=== PATIENT | female | born 1985 | race Caucasian/White ===

== ENCOUNTER 2017-08-18 08:41 | Emergency (ER) | payer BC, OTHER ==
--- NOTE | 2017-08-18 09:26 | ED ---
General Adult HPI - General Chief complaint: Recheck/Abnormal Lab/Rx Stated complaint: BACK PAIN, LUMP ON HIP Time Seen by Provider: 08/18/17 09:02 Source: patient, RN notes reviewed Mode of arrival: ambulatory Limitations: no limitations - History of Present Illness Initial comments: Patient is a 32-year-old female who presents emergency room today with chief complaint of a lump to the right hip and vaginal bleeding. Patient states that she's been bleeding for the last 9 months. She states she does have insurance. States tried follow-up with [facility]. She does admit to a history of fibroids. She denies any dizziness or lightheadedness. She denies any vaginal pain or abdominal pain. She admits that she noticed a lump to the right hip area a few months ago. She states she pressed up against something felt it. She states it 's a small bump. She also admits to some tightness sensation to the left axilla which is also been going on for the last several months. She denies any other complaints or symptoms. Patient denies any recent fever, chills, shortness of breath, chest pain, back pain, abdominal pain, nausea or vomiting, dysuria or hematuria, constipation or diarrhea, headaches or visual changes, or any other complaints. - Related Data Home Medications Medication Instructions Recorded Confirmed Medroxyprogesterone Acetate 5 mg PO TID 03/06/16 04/25/16 [Provera] Previous Rx's Medication Instructions Recorded Famotidine [Pepcid] 20 mg PO DAILY #30 tablet 04/25/16 Famotidine [Pepcid] 20 mg PO DAILY #30 tablet 04/25/16 Sulfamethox-Tmp 800-160Mg [Bactrim 1 each PO Q12HR #20 tab 04/25/16 DS 800-160 mg] Allergies Allergy/AdvReac Type Severity Reaction Status Date / Time No Known Allergies Allergy Verified 08/18/17 08:47 Review of Systems ROS Statement: Those systems with pertinent positive or pertinent negative responses have been documented in the HPI. ROS Other: All systems not noted in ROS Statement are negative. Past Medical History Additional Past Medical History / Comment(s): fibroid History of Any Multi-Drug Resistant Organisms: None Reported Past Surgical History: Cholecystectomy Additional Past Surgical History / Comment(s): cone biospy Past Anesthesia/Blood Transfusion Reactions: No Reported Reaction Past Psychological History: Anxiety, Bipolar, Depression Smoking Status: Former smoker Past Alcohol Use History: Rare Past Drug Use History: None Reported - Past Family History Mother Family Medical History: Cancer, Diabetes Mellitus, Hyperlipidemia, Hypertension Additional Family Medical History / Comment(s): mom has cervical cancer General Exam - General Exam Comments Initial Comments: General: The patient is awake and alert, in no distress, and does not appear acutely ill. Eye: Pupils are equal, round and reactive to light, extra-ocular movements are intact. No nystagmus. There is normal conjunctiva bilaterally. No signs of icterus. Ears, nose, mouth and throat: There are moist mucous membranes and no oral lesions. Neck: The neck is supple, there is no tenderness or JVD. Cardiovascular: There is a regular rate and rhythm. No murmur, rub or gallop is appreciated. Respiratory: Lungs are clear to auscultation, respirations are non-labored, breath sounds are equal. No wheezes, stridor, rales, or rhonchi. Gastrointestinal: Soft, non-distended, non-tender abdomen without masses or organomegaly noted. There is no rebound or guarding present. No CVA tenderness. Bowel sounds are unremarkable. Musculoskeletal: Normal ROM, no tenderness. Strength 5/5. Sensation intact. Pulses equal bilaterally 2+. Neurological: A&O x 3. CN II-XII intact, There are no obvious motor or sensory deficits. Coordination appears grossly intact. Speech is normal. Skin: Patient does have small palpable cystlike structure to the right hip. Possibly ganglion cyst. No abnormality in the left axilla. Mild tenderness on palpation to the area. Skin is warm and dry and no rashes or lesions are noted. Psychiatric: Cooperative, appropriate mood & affect, normal judgment. Limitations: no limitations Course Vital Signs 08/18/17 08:43 Temperature 99.3 F Pulse Rate 85 Respiratory 16 Rate Blood Pressure 134/77 O2 Sat by Pulse 100 Oximetry Medical Decision Making - Medical Decision Making 32-year-old female presenting to the ER with multiple complaints. Admits to vaginal bleeding 9 months. States that she just got insurance. She does admit to history of fibroids. She denies any dizziness or lightheadedness. Was discussed about following up with [facility]. Patient does have small cyst in the right hip area no skin changes been there for several months. Advised to continue follow-up family doctor or [facility] for this. Patient mitts or tightness to the left axilla there is no abnormality on exam again patient is advised to follow-up with her [facility] or family doctor for further evaluation. Patient advised return to emergency room if any symptoms increase worsen. She states her stated and is in agreement. Disposition Clinical Impression: Vaginal bleeding, History of uterine fibroid Disposition: HOME SELF-CARE Condition: Stable Instructions: Uterine Fibroids (ED) Additional Instructions: Please follow-up with [facility]/family doctor in the next 2 days. Please return to emergency room if the symptoms increase or worsen or for any other concerns. Referrals: John Contreras MD [Primary Care Provider] - 1-2 days Karen Hanson MD [STAFF PHYSICIAN] - 1-2 days Time of Disposition: 09:29
[2017-08-18 10:21] VITALS: BP 126/70; PULSE 60; RESP 18; TEMP 98
== END 2017-08-18 10:22 | disposition home or self-care (01) ==
LOC: EC 08:41
DX: N93.9 Abnormal uterine and vaginal bleeding, unspecified (principal); R22.41 Localized swelling, mass and lump, right lower limb; M54.9 Dorsalgia, unspecified; Z87.42 Personal history of other diseases of the female genital tract; Z87.891 Personal history of nicotine dependence; Z88.8 Allergy status to other drugs, medicaments and biological substances
CPT/HCPCS: 99283

== ENCOUNTER 2017-10-01 20:26 | Emergency (ER) | payer BC ==
[2017-10-01 20:38] VITALS: RESP 18
--- NOTE | 2017-10-01 21:32 | ED ---
General Adult HPI - General Chief complaint: Vaginal Bleeding Stated complaint: FEMALE Time Seen by Provider: 10/01/17 21:07 Source: patient, family Mode of arrival: ambulatory Limitations: no limitations - History of Present Illness Initial comments: This patient is a 32-year-old woman with history of previous menometrorrhagia requiring D&C, who presents today with complaint of continued vaginal bleeding. She states that she is been having some bleeding going on for approximately the past 10 months or so. She states that she has been seeing Dr. Mckeon, and is scheduled to have a D&C performed on October 07. She states that the bleeding seems to have increased over the course of today and that when she woke up to get ready to go to work this afternoon she noted she had bled through her pad onto the bed sheets. Also this evening she notes that when she stands she gets a little bit lightheaded. -: days(s) Consistency: constant Improves with: none Worsens with: none Treatments Prior to Arrival: none - Related Data Home Medications Medication Instructions Recorded Confirmed Losartan-Hctz 50-12.5 mg [Hyzaar 1 tab PO DAILY 08/18/17 10/01/17 50-12.5] Previous Rx's Medication Instructions Recorded Ferrous Sulfate [Iron] 325 mg PO BID #20 tablet 10/01/17 Allergies Allergy/AdvReac Type Severity Reaction Status Date / Time No Known Allergies Allergy Verified 10/01/17 21:05 Review of Systems ROS Statement: Those systems with pertinent positive or pertinent negative responses have been documented in the HPI. ROS Other: All systems not noted in ROS Statement are negative. Constitutional: Denies: fever, chills, weakness Eyes: Denies: vision change Respiratory: Denies: cough, dyspnea Cardiovascular: Denies: chest pain, palpitations, orthopnea, edema, syncope Gastrointestinal: Denies: abdominal pain, nausea, vomiting Genitourinary: Reports: as per HPI, abnormal menses. Denies: dysuria, hematuria Musculoskeletal: Denies: back pain Skin: Denies: rash Neurological: Denies: headache, weakness, numbness Hematological/Lymphatic: Denies: easy bleeding Past Medical History Additional Past Medical History / Comment(s): fibroid History of Any Multi-Drug Resistant Organisms: None Reported Past Surgical History: Cholecystectomy Additional Past Surgical History / Comment(s): cone biospy Past Anesthesia/Blood Transfusion Reactions: No Reported Reaction Past Psychological History: Anxiety, Bipolar, Depression Smoking Status: Former smoker Past Alcohol Use History: Rare Past Drug Use History: None Reported - Past Family History Mother Family Medical History: Cancer, Diabetes Mellitus, Hyperlipidemia, Hypertension Additional Family Medical History / Comment(s): mom has cervical cancer General Exam Limitations: no limitations General appearance: alert, in no apparent distress, obese Head exam: Present: atraumatic, normocephalic Eye exam: Present: normal appearance. Absent: scleral icterus, conjunctival injection ENT exam: Present: normal oropharynx, mucous membranes moist Respiratory exam: Present: normal lung sounds bilaterally. Absent: respiratory distress, wheezes, rales, rhonchi, stridor Cardiovascular Exam: Present: regular rate, normal rhythm, normal heart sounds. Absent: systolic murmur, diastolic murmur, rubs, gallop GI/Abdominal exam: Present: soft, normal bowel sounds. Absent: distended, tenderness, guarding, rebound, rigid External exam: Present: normal external exam, other (RN Storm present) Speculum exam: Present: normal speculum exam, other (There is a trace of dark red blood at the cervical os). Absent: erythema, vaginal discharge, cervical discharge, vaginal bleeding By manual exam: Absent: cervical motion tenderness, adnexal tenderness Extremities exam: Present: normal inspection, normal capillary refill. Absent: pedal edema, calf tenderness Back exam: Present: normal inspection. Absent: CVA tenderness (R), CVA tenderness (L) Neurological exam: Present: alert, normal gait Skin exam: Present: warm, dry, intact, normal color. Absent: rash Course Vital Signs 10/01/17 20:35 Temperature 98.3 F Pulse Rate 82 Respiratory 18 Rate Blood Pressure 131/69 O2 Sat by Pulse 99 Oximetry Medical Decision Making - Lab Data Result diagrams: 10/01/17 21:35 10/01/17 21:35 Lab Results 10/01/17 10/01/17 10/01/17 Range/Units 21:35 21:35 21:35 WBC 7.1 (3.8-10.6) k/uL RBC 4.44 (3.80-5.40) m/uL Hgb 10.8 L (11.4-16.0) gm/dL Hct 34.3 (34.0-46.0) % MCV 77.2 L (80.0-100.0) fL MCH 24.3 L (25.0-35.0) pg MCHC 31.5 (31.0-37.0) g/dL RDW 13.5 (11.5-15.5) % Plt Count 198 (150-450) k/uL Neutrophils % 67 % Lymphocytes % 23 % Monocytes % 6 % Eosinophils % 3 % Basophils % 0 % Neutrophils # 4.7 (1.3-7.7) k/uL Lymphocytes # 1.6 (1.0-4.8) k/uL Monocytes # 0.4 (0-1.0) k/uL Eosinophils # 0.2 (0-0.7) k/uL Basophils # 0.0 (0-0.2) k/uL Hypochromasia Slight Sodium 143 (137-145) mmol/L Potassium 4.0 (3.5-5.1) mmol/L Chloride 108 H (98-107) mmol/L Carbon Dioxide 27 (22-30) mmol/L Anion Gap 8 mmol/L BUN 14 (7-17) mg/dL Creatinine 0.70 (0.52-1.04) mg/dL Est GFR (MDRD) Af Amer >60 (>60 ml/min/1.73 sqM) Est GFR (MDRD) Non-Af >60 (>60 ml/min/1.73 sqM) Glucose 95 (74-99) mg/dL Calcium 8.5 (8.4-10.2) mg/dL Urine HCG, Qual Not Detected (Not Detectd) Disposition Clinical Impression: Dysfunctional uterine bleeding, Anemia Disposition: HOME SELF-CARE Condition: Good Instructions: Dysfunctional Uterine Bleeding (ED) Prescriptions: Ferrous Sulfate [Iron] 325 mg PO BID #20 tablet Referrals: John Contreras MD [Primary Care Provider] - 1-2 days
[2017-10-01 21:53] LABS: Basophils % (A) 0 %; Eosinophils # (A) 0.2 k/uL (0-0.7); Eosinophils % (A) 3 %; HCT 34.3 % (34.0-46.0); HGB 10.8 gm/dL (11.4-16.0); Hypochromasia Slight; Lymphocytes # (A) 1.6 k/uL (1.0-4.8); Lymphocytes % (A) 23 %; MCH 24.3 pg (25.0-35.0); MCHC 31.5 g/dL (31.0-37.0); MCV 77.2 fL (80.0-100.0); Mean Platelet Volume 8.9; Monocytes # (A) 0.4 k/uL (0-1.0); Monocytes % (A) 6 %; Neutrophils # (A) 4.7 k/uL (1.3-7.7); Neutrophils % (A) 67 %; Platelet Count 198 k/uL (150-450); RBC 4.44 m/uL (3.80-5.40); RDW 13.5 % (11.5-15.5); WBC 7.1 k/uL (3.8-10.6)
[2017-10-01 22:06] LABS: Anion Gap 8 mmol/L; Blood Urea Nitrogen 14 mg/dL (7-17); Calcium 8.5 mg/dL (8.4-10.2); Carbon Dioxide 27 mmol/L (22-30); Chloride 108 mmol/L (98-107); Glucose 95 mg/dL (74-99); Sodium 143 mmol/L (137-145)
[2017-10-01 23:02] VITALS: BP 123/73; PULSE 83; TEMP 99
== END 2017-10-01 22:45 | disposition home or self-care (01) ==
LOC: EC 20:26
DX: N93.8 Other specified abnormal uterine and vaginal bleeding (principal); D64.9 Anemia, unspecified; Z87.891 Personal history of nicotine dependence; Z79.899 Other long term (current) drug therapy
CPT/HCPCS: 36415; 80048; 81025; 85025; 99284

== ENCOUNTER → 2017-10-03 | Outpatient (CLI) | payer BC ==
[2017-10-03 13:15] LABS: Basophils % (A) 0 %; Eosinophils # (A) 0.3 k/uL (0-0.7); Eosinophils % (A) 3 %; HCT 32.5 % (34.0-46.0); HGB 10.1 gm/dL (11.4-16.0); Hypochromasia Slight; Lymphocytes # (A) 2.2 k/uL (1.0-4.8); Lymphocytes % (A) 25 %; MCH 23.8 pg (25.0-35.0); MCHC 31.2 g/dL (31.0-37.0); MCV 76.4 fL (80.0-100.0); Mean Platelet Volume 9.7; Monocytes # (A) 0.4 k/uL (0-1.0); Monocytes % (A) 4 %; Neutrophils # (A) 5.8 k/uL (1.3-7.7); Neutrophils % (A) 66 %; Platelet Count 196 k/uL (150-450); RBC 4.25 m/uL (3.80-5.40); WBC 8.8 k/uL (3.8-10.6)
== END | disposition home or self-care (01) ==
LOC: LABWHC1 12:04
PROVIDERS: ATTEND Obstetrics & Gynecology Obstetrics
DX: Z01.818 Encounter for other preprocedural examination (principal); Z01.812 Encounter for preprocedural laboratory examination; I10 Essential (primary) hypertension; N92.1 Excessive and frequent menstruation with irregular cycle
CPT/HCPCS: 36415; 85025; 93005

== ENCOUNTER 2017-10-07 08:27 | Day surgery (SDC) | payer BC ==
[2017-10-03 11:47] VITALS: BMI 48.6
--- NOTE | 2017-10-06 10:41 | P.HPOB ---
History of Present Illness H&P Date: 10/06/17 Chief Complaint: menorrhagia, metrorrhagia This is 32yo female G0 that presents with c/o menorrhagia, with frequent BTB. she does want to try for but notes she doesnt want to after age 34. she has tried to cycle with progesterone without relief of her symptoms. she notes dysmenorrhea, but denies needing anything for pain. Review of Systems Respiratory: Denies cough Gastrointestinal: Denies constipation, Denies diarrhea Menstruation: Reports cycle variable, Reports period heavy Past Medical History Past Medical History: Hypertension Additional Past Medical History / Comment(s): MENORRHAGIA, ANEMIA, STATES FIBROID AND UTERINE CYST., HX OF UTI'S. History of Any Multi-Drug Resistant Organisms: None Reported Past Surgical History: Cholecystectomy Additional Past Surgical History / Comment(s): cone biospy Past Anesthesia/Blood Transfusion Reactions: No Reported Reaction Past Psychological History: Anxiety, Bipolar, Depression Smoking Status: Former smoker Past Alcohol Use History: Rare Additional Past Alcohol Use History / Comment(s): QUIT SMOKING 2007, SMOKED APPROX 2 YEARS. Past Drug Use History: None Reported - Past Family History Mother Family Medical History: Cancer, Diabetes Mellitus, Hyperlipidemia, Hypertension Additional Family Medical History / Comment(s): mom has cervical cancer Medications and Allergies Home Medications Medication Instructions Recorded Confirmed Type Losartan-Hctz 50-12.5 mg [Hyzaar 1 tab PO DAILY 08/18/17 10/03/17 History 50-12.5] Ferrous Sulfate [Iron] 325 mg PO BID #20 tablet 10/01/17 10/03/17 Rx Aspirin 325 mg PO ONCE PRN 10/03/17 10/03/17 History Allergies Allergy/AdvReac Type Severity Reaction Status Date / Time No Known Allergies Allergy Verified 10/03/17 11:17 Exam Osteopathic Statement: *. No significant issues noted on an osteopathic structural exam other than those noted in the History and Physical/Consult. - OBG Physical Exam Abdomen: obese Vagina: normal for age no lesions noted Cervix: normal without lesion or mass Uterus: normal size Assessment and Plan (1) Dysfunctional uterine bleeding Narrative/Plan: plan H DC with IUD insertion. preocedure reviewed with pt in detail and questions answered. she has failed medical management up to this point. Status: Acute Code(s): N93.8 - OTHER SPECIFIED ABNORMAL UTERINE AND VAGINAL BLEEDING SNOMED Code(s): 48803970
[~2017-10-07 08:27] MED LIST: DEXAMETHASONE SOD PHOSPHATE 10 MG/ML 1 ML VIAL IV ONE; LACTATED RINGERS 1,000 ML IV SCH; MIDAZOLAM 2 MG/2 ML VIAL IV PRN; MORPHINE SULFATE 4 MG/ML SYRINGE IV PRN; ONDANSETRON 4 MG/2 ML VIAL IVP ONE; Pre Op ABX Message 1 EACH MISC MISCELLANE ONE; SCOPOLAMINE 1.5MG/72HR PATCH TRANSDERM ONE
[2017-10-07] MEDS ORDERED: LIDOCAINE 1% 20 ML VIAL (10MG/ML) FOR IV START INTRADERMA ONE (09:14)
[2017-10-07] MEDS ORDERED: GLYCOPYRROLATE 0.2 MG/ML 2 ML VIAL ONE (10:00)
[2017-10-07] MEDS ORDERED: MIDAZOLAM 2 MG/2 ML VIAL ONE (10:00)
[2017-10-07] MEDS ORDERED: SUCCINYLCHOLINE CHLORIDE VIAL 200 MG/10 ML VIAL IV ONE (10:00)
[2017-10-07] MEDS ORDERED: PROPOFOL 10 MG/ML 20 ML VIAL IV ONE (10:00)
[2017-10-07] MEDS ORDERED: KETOROLAC 30 MG/ML 1 ML VIAL ONE (10:00)
[2017-10-07] MEDS ORDERED: LIDOCAINE 1% INJ 10MG/ML (20 ML MDV) ONE (10:00)
--- NOTE | 2017-10-07 10:26 | P.OP ---
Date of Procedure: 10/07/17 Preoperative Diagnosis: menometrorrhagia, failed medical treatment Postoperative Diagnosis: same Procedure(s) Performed: Hysteroscopy, dilation and curettage, Mirena IUD insertion Surgeon: Poonam Mckeon Estimated Blood Loss (ml): 10 IV fluids (ml): 200 Urine output (ml): 100 Pathology: other (Endometrial curettings) Condition: stable Disposition: PACU Indications for Procedure: Heavy irregular bleeding, failed medical treatment Operative Findings: Proliferative endometrium Description of Procedure: This is a 32-year-old 0 who presents with complaints of metromenorrhagia. She states she has bleeding daily for the last 11 months. Informed consent was obtained in the preoperative area. Risks were reviewed including but not limited to infection, bleeding, damage to the uterus, uterine perforation. Patient stated understanding and informed consent was obtained. The patient was taken to the operating room where general anesthesia was obtained by the anesthesia department. She was then prepped and draped the normal sterile fashion in the dorsal lithotomy position catheter was then used to drain the bladder clear yellow urine. Weighted speculumin the posterior vaginal vault the anterior lip the cervix was visualized and grasped with a single-tooth tenaculum the endocervical canal was then dilated to approximately 15-[place] and hysteroscope was placed through the cervix, toward the endometrial cavity. A proliferative endometrium was noted. A sharp curettage then performed until gritty texture was noted in all 4 quadrants of the uterine cavity. At this point the Mirena IUD was opened and placed in the usual fashion. Afterwards the strings were noted to be at the cervical os approximately 2 cm. Patient tolerated procedure well and was taken to the recovery room awake and in stable condition. All counts are correct 2
[2017-10-07 10:48] VITALS: TEMP 97.4
[2017-10-07 10:57] VITALS: RESP 16
[2017-10-07] MEDS ORDERED: LACTATED RINGERS 1,000 ML IV ONE (11:19)
[2017-10-07 11:53] VITALS: BP 136/85; PULSE 69
== END 2017-10-07 12:15 | disposition home or self-care (01) ==
LOC: OR 08:27
PROVIDERS: ATTEND Obstetrics & Gynecology Obstetrics
DX: N84.0 Polyp of corpus uteri (principal); F41.9 Anxiety disorder, unspecified; F31.9 Bipolar disorder, unspecified; E66.01 Morbid (severe) obesity due to excess calories; D64.9 Anemia, unspecified; Z87.891 Personal history of nicotine dependence; Z83.3 Family history of diabetes mellitus; Z82.49 Family history of ischemic heart disease and other diseases of the circulatory system; Z80.49 Family history of malignant neoplasm of other genital organs; Z79.82 Long term (current) use of aspirin; Z87.440 Personal history of urinary (tract) infections; Z90.49 Acquired absence of other specified parts of digestive tract; Z79.899 Other long term (current) drug therapy; Z68.42 Body mass index [BMI] 45.0-49.9, adult
CPT/HCPCS: 81025; 88305; 58558; 58300; J2250; J0330; J1100; J2405; J2001; J1885; J2704

== ENCOUNTER 2018-08-30 18:22 | Emergency (ER) | payer BC, OTHER ==
[2018-08-30 18:47] VITALS: TEMP 98.4
--- NOTE | 2018-08-30 19:25 | ED ---
Female Urogenital HPI - General Chief complaint: Vaginal Bleeding Stated complaint: vaginal bleeding Time Seen by Provider: 08/30/18 18:48 Source: patient Mode of arrival: ambulatory Limitations: no limitations - History of Present Illness Initial comments: Patient is a 33-year-old female presents with a chief complaint of vaginal bleeding for 2 days. The patient states that she had an IUD placed in October 2017. She states that since then she has had consistently bleeding however over the last 2 days become heavy with passage of clots. She says that she is having lower abdominal pain, with radiation to her back. She cannot identify an inciting incident. There are no aggravating or alleviating factors. Patient states her pain is a 3 out of 10. Patient denies dysuria but states that she does have a foul smell. - Related Data Home Medications Medication Instructions Recorded Confirmed Ibuprofen [Motrin] 800 mg PO Q8H PRN 08/30/18 08/30/18 Trifluoperazine HCl 7.5 mg PO HS 08/30/18 08/30/18 clonazePAM [KlonoPIN] 0.5 mg PO DAILY 08/30/18 08/30/18 Allergies Allergy/AdvReac Type Severity Reaction Status Date / Time No Known Allergies Allergy Verified 08/30/18 20:20 Review of Systems ROS Statement: Those systems with pertinent positive or pertinent negative responses have been documented in the HPI. ROS Other: All systems not noted in ROS Statement are negative. Gastrointestinal: Reports: abdominal pain Genitourinary: Reports: abnormal menses Hematological/Lymphatic: Reports: easy bleeding, easy bruising Past Medical History Additional Past Medical History / Comment(s): fibroid History of Any Multi-Drug Resistant Organisms: None Reported Past Surgical History: Cholecystectomy Additional Past Surgical History / Comment(s): cone biospy Past Anesthesia/Blood Transfusion Reactions: No Reported Reaction Past Psychological History: Anxiety, Bipolar, Depression Smoking Status: Former smoker Past Alcohol Use History: Rare Past Drug Use History: None Reported - Past Family History Mother Family Medical History: Cancer, Diabetes Mellitus, Hyperlipidemia, Hypertension Additional Family Medical History / Comment(s): mom has cervical cancer General Exam Limitations: no limitations General appearance: alert, in no apparent distress Head exam: Present: atraumatic, normocephalic Eye exam: Present: normal appearance ENT exam: Present: normal exam Neck exam: Present: normal inspection Respiratory exam: Present: normal lung sounds bilaterally. Absent: respiratory distress, wheezes Cardiovascular Exam: Present: regular rate, normal rhythm GI/Abdominal exam: Present: soft, tenderness (Lower abdomen). Absent: distended Rectal exam: Present: deferred Extremities exam: Present: normal inspection Back exam: Present: normal inspection Neurological exam: Present: alert, oriented X3, CN II-XII intact, normal gait Psychiatric exam: Present: normal affect, normal mood Skin exam: Present: warm, dry, intact Course Vital Signs 08/30/18 18:45 Temperature 98.4 F Pulse Rate 72 Respiratory 18 Rate Blood Pressure 138/89 O2 Sat by Pulse 100 Oximetry Medical Decision Making - Medical Decision Making Patient presents with a chief complaint of vaginal bleeding. On initial evaluation, vitals are stable, patient is in no acute distress. She'll be evaluated with beta hCG, basic labs, and ultrasound of the pelvis. 8:46 PM Laboratory evaluation is unremarkable, urine does not show infection. Pelvic exam shows a small amount of dark blood in the vaginal vault, no IUD strings were identified. Ultrasound shows a single fibroid within the uterus, there is no evidence of ovarian torsion either clinically nor on ultrasound. The IUD was not seen by the radiologist on ultrasound. This time, patient was treated with azithromycin and Rocephin, cultures were sent. Stable for discharge and instructed to follow-up with OB in 1-2 days. Return to the ED if symptoms worsen or change. - Lab Data Result diagrams: 08/30/18 19:37 08/30/18 19:54 Lab Results 08/30/18 08/30/18 08/30/18 Range/Units 19:37 19:37 19:54 WBC 11.4 H (3.8-10.6) k/uL RBC 5.09 (3.80-5.40) m/uL Hgb 12.0 (11.4-16.0) gm/dL Hct 37.7 (34.0-46.0) % MCV 74.2 L (80.0-100.0) fL MCH 23.5 L (25.0-35.0) pg MCHC 31.7 (31.0-37.0) g/dL RDW 15.7 H (11.5-15.5) % Plt Count 170 (150-450) k/uL Neutrophils % 76 % Lymphocytes % 16 % Monocytes % 4 % Eosinophils % 3 % Basophils % 0 % Neutrophils # 8.6 H (1.3-7.7) k/uL Lymphocytes # 1.8 (1.0-4.8) k/uL Monocytes # 0.5 (0-1.0) k/uL Eosinophils # 0.3 (0-0.7) k/uL Basophils # 0.0 (0-0.2) k/uL Microcytosis Slight Sodium 142 (137-145) mmol/L Potassium 4.1 (3.5-5.1) mmol/L Chloride 108 H (98-107) mmol/L Carbon Dioxide 27 (22-30) mmol/L Anion Gap 7 mmol/L BUN 13 (7-17) mg/dL Creatinine 0.64 (0.52-1.04) mg/dL Est GFR (CKD-EPI)AfAm >90 (>60 ml/min/1.73 sqM) Est GFR (CKD-EPI)NonAf >90 (>60 ml/min/1.73 sqM) Glucose 99 (74-99) mg/dL Calcium 9.7 (8.4-10.2) mg/dL Urine Color Yellow Urine Appearance Clear (Clear) Urine pH 6.5 (5.0-8.0) Ur Specific [place] 1.021 (1.001-1.035) Urine Protein Trace H (Negative) Urine Glucose (UA) Negative (Negative) Urine Ketones Negative (Negative) Urine Blood Moderate H (Negative) Urine Nitrite Negative (Negative) Urine Bilirubin Negative (Negative) Urine Urobilinogen <2.0 (<2.0) mg/dL Ur Leukocyte Esterase Small H (Negative) Urine RBC 11 H (0-5) /hpf Urine WBC 7 H (0-5) /hpf Ur Squamous Epith Cells 1 (0-4) /hpf Urine Mucus Few H (None) /hpf Disposition Clinical Impression: Abnormal uterine bleeding (AUB), Fibroid, Vaginal bleeding Disposition: HOME SELF-CARE Condition: Good Instructions (If sedation given, give patient instructions): Menorrhagia (ED) Is patient prescribed a controlled substance at d/c from ED?: No Referrals: Jhon Contreras MD [Primary Care Provider] - 1-2 days
[2018-08-30 19:41] LABS: Basophils % (A) 0 %; Eosinophils # (A) 0.3 k/uL (0-0.7); Eosinophils % (A) 3 %; HCT 37.7 % (34.0-46.0); Lymphocytes # (A) 1.8 k/uL (1.0-4.8); Lymphocytes % (A) 16 %; MCH 23.5 pg (25.0-35.0); MCHC 31.7 g/dL (31.0-37.0); MCV 74.2 fL (80.0-100.0); Mean Platelet Volume 10.3; Microcytosis Slight; Monocytes # (A) 0.5 k/uL (0-1.0); Monocytes % (A) 4 %; Neutrophils # (A) 8.6 k/uL (1.3-7.7); Neutrophils % (A) 76 %; Platelet Count 170 k/uL (150-450); RBC 5.09 m/uL (3.80-5.40); RDW 15.7 % (11.5-15.5); WBC 11.4 k/uL (3.8-10.6)
[2018-08-30 19:43] LABS: Appearance,Urine Clear (Clear); Bilirubin,Urine Negative (Negative); Blood,Urine Moderate (Negative); Color,Urine Yellow; Glucose,Urine (UA) Negative (Negative); Ketones,Urine Negative (Negative); Leukocyte Esterase,Urine Small (Negative); Mucus,Urine Few /hpf; Nitrite,Urine Negative (Negative); PH, Urine 6.5 (5.0-8.0); Protein,Urine Trace (Negative); RBC,Urine 11 /hpf (0-5); Specific Gravity,Urine 1.021 (1.001-1.035); Squamous Epithelial Cell,Urine 1 /hpf (0-4); Urobilinogen,Urine <2.0 mg/dL (<2.0); WBC,Urine 7 /hpf (0-5)
--- NOTE | 2018-08-30 20:19 | US ---
EXAMINATION TYPE: US transvaginal DATE OF EXAM: 08/30/2018 COMPARISON: Ultrasound 05/02/2014 CLINICAL HISTORY: Pain. heavy bleeding with clots. TECHNIQUE: Transvaginal (TV). Date of LMP: 08/08/2018 EXAM MEASUREMENTS: Uterus: 8.9 x 4.8 x 7.3 cm Endometrial Stripe: 0.8 cm Right Ovary: 7.5 x 2.3 x 6.1 cm Left Ovary: not identified cm 1. Uterus: Anteverted heterogeneous echotexture, fibroid fundally measures 2.8 x 2.5 x 2.9 cm 2. Endometrium: wnl, patient states she has an IUD. It is not definitely identified. 3. Right Ovary: only one ovary clearly identified, unsure if it represents left or right as it sits centrally under uterus. There is a cyst that measures 2.7 x 2.2 x 2.9 cm. 4. Left Ovary: not identified Spectral, color and waveform doppler imaging shows arterial and venous flow within the visualized o vary; there is no evidence for ovarian torsion. 5. Bilateral Adnexa: wnl 6. Posterior cul-de-sac: no free fluid Only one ovary clearly seen, unsure if it represents right or left as it's position is centrally loca anand, cyst seen on this ovary. It also could appear as both ovaries are side by side and this represen ts both ovaries. Patient states she has an IUD, this is not clearly identified on ultrasound. Uterus is heterogeneous and contains at least one fibroid. IMPRESSION: Fibroid uterus. Cystic focus associated with the ovary. Additional findings above, limite d exam.
[2018-08-30 20:22] LABS: Anion Gap 7 mmol/L; Blood Urea Nitrogen 13 mg/dL (7-17); Calcium 9.7 mg/dL (8.4-10.2); Carbon Dioxide 27 mmol/L (22-30); Chloride 108 mmol/L (98-107); Glucose 99 mg/dL (74-99); Potassium 4.1 mmol/L (3.5-5.1); Sodium 142 mmol/L (137-145)
[2018-08-30 20:38] LABS: HCG,Quantitative Serum <2.4 mIU/mL
[2018-08-30] MEDS ORDERED: cefTRIAXone 250 MG VIAL IM STA (20:43)
[2018-08-30] MEDS ORDERED: AZITHROMYCIN 500 MG TAB PO STA (20:43)
[2018-08-30 21:07] VITALS: BP 141/92; PULSE 65; RESP 16
[2018-09-01 15:40] LABS: C. trachomatis,PCR Negative (Neg,Equiv); Chlamydia trachomatis Source Vagina; N. gonorrhoeae,PCR Negative (Neg,Equiv); Neisseria Source Vagina
== END 2018-08-30 21:06 | disposition home or self-care (01) ==
LOC: EC 18:22
DX: D25.9 Leiomyoma of uterus, unspecified (principal); F31.9 Bipolar disorder, unspecified; F41.9 Anxiety disorder, unspecified; Z87.891 Personal history of nicotine dependence; Z79.899 Other long term (current) drug therapy
CPT/HCPCS: 36415; 80048; 85025; 81001; 84702; 87491; 87591; 93976; 76830; 99284; 96372; J0696

== ENCOUNTER 2018-12-15 12:59 | Emergency (ER) | payer OTHER ==
[2018-12-15 13:14] VITALS: TEMP 97.9
--- NOTE | 2018-12-15 14:29 | ED ---
General Adult HPI - General Chief complaint: Back Pain/Injury Stated complaint: Dizziness/back pain Time Seen by Provider: 12/15/18 14:16 Source: patient, RN notes reviewed, old records reviewed Mode of arrival: ambulatory Limitations: no limitations - History of Present Illness Initial comments: 33-year-old female patient with no pertinent past medical history presents to ED for chief complaint of approximately 1 month of frequent urination as well as l ow back pain. Patient states she was recently treated for urinary tract infection by urgent care. Patient denies any loss of bowel or bladder control, saddle anesthesia. Patient denies any lower extremity weakness. Patient also complains of waxing and waning shortness of breath as well as lightheadedness over this past one month. Denies any current sob, chest pain cough or congestion. Denies any headache or changes in vision. Systemic: Pt denies fatigue, myalgia, fever/chills, rash. Pt denies weakness, night sweats, weight loss. Neuro: Pt denies headache, visual disturbances, syncope or pre-syncope. HEENT: Pt denies ocular discharge or irritation, otalgia, rhinorrhea, pharyngitis or notable lymphadenopathy. Cardiopulmonary: Pt denies chest pain, SOB, heart palpitations, dyspnea on exertion. Abdominal/GI: Pt denies abdominal pain, n/v/d. : Pt denies dysuria, burning w/ urination, frequency/urgency. Denies new onset urinary or bowel incontinence. MSK: Pt denies myalgia, loss of strength or function in extremities. Neuro: Pt denies new onset weakness, paresthesias. - Related Data Previous Rx's Medication Instructions Recorded Cephalexin [Keflex] 500 mg PO Q12HR 10 Days cap 12/15/18 Allergies Allergy/AdvReac Type Severity Reaction Status Date / Time No Known Allergies Allergy Verified 12/15/18 15:59 Review of Systems ROS Statement: Those systems with pertinent positive or pertinent negative responses have been documented in the HPI. ROS Other: All systems not noted in ROS Statement are negative. Past Medical History Additional Past Medical History / Comment(s): fibroid History of Any Multi-Drug Resistant Organisms: None Reported Past Surgical History: Cholecystectomy Additional Past Surgical History / Comment(s): cone biospy Past Anesthesia/Blood Transfusion Reactions: No Reported Reaction Past Psychological History: Anxiety, Bipolar, Depression Smoking Status: Former smoker Past Alcohol Use History: Rare Past Drug Use History: None Reported - Past Family History Mother Family Medical History: Cancer, Diabetes Mellitus, Hyperlipidemia, Hypertension Additional Family Medical History / Comment(s): mom has cervical cancer General Exam - General Exam Comments Initial Comments: Constitutional: NAD, AOX3, Pt has pleasant affect. HEENT: NC/AT, trachea midline, neck supple, no lymphadenopathy. Posterior pharynx non erythematous, without exudates. External ears appear normal, without discharge. Mucous membranes moist. Eyes PERRLA, EOM intact. There is no scleral icterus. No pallor noted. Cardiopulmonary: RRR, no murmurs, rubs or gallops, no JVD noted. Lungs CTAB in anterior and posterior alfaro. No peripheral edema. Abdominal exam: Abdomen soft and non-distended. Abdomen non-tender to palpation in all 4 quadrants. Bowel sounds active in LLQ. No hepatosplenomegaly. No ecchy mosis Neuro: CN II-XII intact. No nuchal rigidity. MSK: No tenderness to cervical thoracic lumbar spine. 5/5 strength quadriceps and psoas muscles. Heel toe walking intact. No posterior calf tenderness bilaterally, homans sign negative bilaterally. Posterior tibialis and radial pulse +2 bilaterally. Sensation intact in upper and lower extremities. Full active ROM in upper and lower extremities, 5/5 stregnth. Limitations: no limitations Course Vital Signs 12/15/18 12/15/18 13:12 16:00 Temperature 97.9 F Pulse Rate 90 66 Respiratory 20 18 Rate Blood Pressure 136/94 146/78 O2 Sat by Pulse 98 97 Oximetry Medical Decision Making - Medical Decision Making 33-year-old female patient with no pertinent past medical history presents to ED for chief complaint of approximately 1 month of frequent urination as well as low back pain. Patient states she was recently treated for urinary tract infection by urgent care. Patient denies any loss of bowel or bladder control, saddle anesthesia. Patient denies any lower extremity weakness. Patient also complains of waxing and waning shortness of breath as well as lightheadedness over this past one month. Denies any current sob, chest pain cough or congestion. Denies any headache or changes in vision. Patient vital signs stable, afebrile. Physical exam displayed: No posterior calf tenderness bilaterally, homans sign negative bilaterally. Posterior tibialis and radial pulse +2 bilaterally. Sensation intact in upper and lower extremities. Full active ROM in upper and lower extremities, 5/5 stregnth. CN II-XII intact. No nuchal rigidity. Abdomen soft and non-distended. Abdomen non-tender to palpation in all 4 quadrants. Bowel sounds active in LLQ. No hepatosplenomegaly. No ecc hymosis. Laboratory investigations revealed nonimpressive CBC, CMP. D-dimer negative. Troponin negative. UA displayed urinary traction traction. Plain film of Lumbar spine revealed degenerative disc disease. Plain film of the chest revealed no acute process. EKG not concerning for acute ischemia. Patient discharged with treatment for urinary tract infection. Urinary culture. Patient to follow up with primary care provider in 1-2 days. Patient return to ER if condition worsens in any way. Case discussed with Dr. Francisco. - Lab Data Result diagrams: 12/15/18 14:45 12/15/18 14:45 Lab Results 12/15/18 12/15/18 12/15/18 Range/Units 14:45 14:45 14:45 WBC 8.5 (3.8-10.6) k/uL RBC 5.44 H (3.80-5.40) m/uL Hgb 12.3 (11.4-16.0) gm/dL Hct 40.1 (34.0-46.0) % MCV 73.6 L (80.0-100.0) fL MCH 22.5 L (25.0-35.0) pg MCHC 30.6 L (31.0-37.0) g/dL RDW 15.7 H (11.5-15.5) % Plt Count 176 (150-450) k/uL Neutrophils % 73 % Lymphocytes % 17 % Monocytes % 5 % Eosinophils % 5 % Basophils % 1 % Neutrophils # 6.2 (1.3-7.7) k/uL Lymphocytes # 1.4 (1.0-4.8) k/uL Monocytes # 0.4 (0-1.0) k/uL Eosinophils # 0.4 (0-0.7) k/uL Basophils # 0.0 (0-0.2) k/uL Microcytosis Slight D-Dimer (<0.60) mg/L FEU Sodium 141 (137-145) mmol/L Potassium 4.1 (3.5-5.1) mmol/L Chloride 108 H (98-107) mmol/L Carbon Dioxide 27 (22-30) mmol/L Anion Gap 6 mmol/L BUN 12 (7-17) mg/dL Creatinine 0.73 (0.52-1.04) mg/dL Est GFR (CKD-EPI)AfAm >90 (>60 ml/min/1.73 sqM) Est GFR (CKD-EPI)NonAf >90 (>60 ml/min/1.73 sqM) Glucose 98 (74-99) mg/dL Calcium 9.6 (8.4-10.2) mg/dL Total Bilirubin 0.4 (0.2-1.3) mg/dL AST 23 (14-36) U/L ALT 24 (9-52) U/L Alkaline Phosphatase 61 (38-126) U/L Troponin I (0.000-0.034) ng/mL Total Protein 7.4 (6.3-8.2) g/dL Albumin 4.2 (3.5-5.0) g/dL Urine Color Urine Appearance (Clear) Urine pH (5.0-8.0) Ur Specific [place] (1.001-1.035) Urine Protein (Negative) Urine Glucose (UA) (Negative) Urine Ketones (Negative) Urine Blood (Negative) Urine Nitrite (Negative) Urine Bilirubin (Negative) Urine Urobilinogen (<2.0) mg/dL Ur Leukocyte Esterase (Negative) Urine RBC (0-5) /hpf Urine WBC (0-5) /hpf Ur Squamous Epith Cells (0-4) /hpf Urine Bacteria (None) /hpf Urine Mucus (None) /hpf Urine HCG, Qual Not Detected (Not Detectd) 12/15/18 12/15/18 12/15/18 Range/Units 14:45 14:45 14:45 WBC (3.8-10.6) k/uL RBC (3.80-5.40) m/uL Hgb (11.4-16.0) gm/dL Hct (34.0-46.0) % MCV (80.0-100.0) fL MCH (25.0-35.0) pg MCHC (31.0-37.0) g/dL RDW (11.5-15.5) % Plt Count (150-450) k/uL Neutrophils % % Lymphocytes % % Monocytes % % Eosinophils % % Basophils % % Neutrophils # (1.3-7.7) k/uL Lymphocytes # (1.0-4.8) k/uL Monocytes # (0-1.0) k/uL Eosinophils # (0-0.7) k/uL Basophils # (0-0.2) k/uL Microcytosis D-Dimer 0.22 (<0.60) mg/L FEU Sodium (137-145) mmol/L Potassium (3.5-5.1) mmol/L Chloride (98-107) mmol/L Carbon Dioxide (22-30) mmol/L Anion Gap mmol/L BUN (7-17) mg/dL Creatinine (0.52-1.04) mg/dL Est GFR (CKD-EPI)AfAm (>60 ml/min/1.73 sqM) Est GFR (CKD-EPI)NonAf (>60 ml/min/1.73 sqM) Glucose (74-99) mg/dL Calcium (8.4-10.2) mg/dL Total Bilirubin (0.2-1.3) mg/dL AST (14-36) U/L ALT (9-52) U/L Alkaline Phosphatase (38-126) U/L Troponin I <0.012 (0.000-0.034) ng/mL Total Protein (6.3-8.2) g/dL Albumin (3.5-5.0) g/dL Urine Color Yellow Urine Appearance Cloudy H (Clear) Urine pH 5.5 (5.0-8.0) Ur Specific [place] 1.025 (1.001-1.035) Urine Protein Trace H (Negative) Urine Glucose (UA) Negative (Negative) Urine Ketones Negative (Negative) Urine Blood Moderate H (Negative) Urine Nitrite Negative (Negative) Urine Bilirubin Negative (Negative) Urine Urobilinogen <2.0 (<2.0) mg/dL Ur Leukocyte Esterase Large H (Negative) Urine RBC 3 (0-5) /hpf Urine WBC 39 H (0-5) /hpf Ur Squamous Epith Cells 17 H (0-4) /hpf Urine Bacteria Occasional H (None) /hpf Urine Mucus Few H (None) /hpf Urine HCG, Qual (Not Detectd) - EKG Data -: EKG Interpreted by Me (and dr francisco) EKG Comments: 164, QRS 94, QT/QTc 42/414. Normal sinus rhythm, and EKG, no concern for acute ischemia. Disposition Clinical Impression: UTI (urinary tract infection) Disposition: HOME SELF-CARE Condition: Stable Instructions (If sedation given, give patient instructions): Urinary Tract Infection in Men (ED) Additional Instructions: Patient to adhere to previously discussed treatment plan and will take medicati on(s) as directed. Patient to follow up with PCP in 1-2 days. Patient to return to ED if symptoms do not improve. Present medications prescribed. Please follow-up with primary care provider in 1-2 days. Presumed return to ER if condition worsens in anyway. Orthopedic consult provided for degenerative disc disease. Prescriptions: Cephalexin [Keflex] 500 mg PO Q12HR 10 Days cap Is patient prescribed a controlled substance at d/c from ED?: No Referrals: John Contreras MD [Primary Care Provider] - 1-2 days Trae Ya MD [STAFF PHYSICIAN] - 1-2 days
[2018-12-15 15:06] LABS: Basophils % (A) 1 %; Eosinophils # (A) 0.4 k/uL (0-0.7); Eosinophils % (A) 5 %; HCT 40.1 % (34.0-46.0); HGB 12.3 gm/dL (11.4-16.0); Lymphocytes # (A) 1.4 k/uL (1.0-4.8); Lymphocytes % (A) 17 %; MCH 22.5 pg (25.0-35.0); MCHC 30.6 g/dL (31.0-37.0); MCV 73.6 fL (80.0-100.0); Mean Platelet Volume 7.7; Microcytosis Slight; Monocytes # (A) 0.4 k/uL (0-1.0); Monocytes % (A) 5 %; Neutrophils # (A) 6.2 k/uL (1.3-7.7); Neutrophils % (A) 73 %; Platelet Count 176 k/uL (150-450); RBC 5.44 m/uL (3.80-5.40); RDW 15.7 % (11.5-15.5); WBC 8.5 k/uL (3.8-10.6)
[2018-12-15 15:14] LABS: ALT 24 U/L (9-52); AST 23 U/L (14-36); Albumin 4.2 g/dL (3.5-5.0); Alkaline Phosphatase 61 U/L (38-126); Anion Gap 6 mmol/L; Blood Urea Nitrogen 12 mg/dL (7-17); Calcium 9.6 mg/dL (8.4-10.2); Carbon Dioxide 27 mmol/L (22-30); Chloride 108 mmol/L (98-107); Glucose 98 mg/dL (74-99); Potassium 4.1 mmol/L (3.5-5.1); Sodium 141 mmol/L (137-145); Total Bilirubin 0.4 mg/dL (0.2-1.3); Total Protein 7.4 g/dL (6.3-8.2)
[2018-12-15 15:15] LABS: Appearance,Urine Cloudy (Clear); Bacteria,Urine Occasional /hpf; Bilirubin,Urine Negative (Negative); Blood,Urine Moderate (Negative); Color,Urine Yellow; Glucose,Urine (UA) Negative (Negative); Ketones,Urine Negative (Negative); Leukocyte Esterase,Urine Large (Negative); Mucus,Urine Few /hpf; Nitrite,Urine Negative (Negative); PH, Urine 5.5 (5.0-8.0); Protein,Urine Trace (Negative); RBC,Urine 3 /hpf (0-5); Specific Gravity,Urine 1.025 (1.001-1.035); Squamous Epithelial Cell,Urine 17 /hpf (0-4); Urobilinogen,Urine <2.0 mg/dL (<2.0); WBC,Urine 39 /hpf (0-5)
--- NOTE | 2018-12-15 15:42 | XR ---
EXAMINATION TYPE: XR chest 2V DATE OF EXAM: 12/15/2018 COMPARISON: Prior chest x-ray 10/06/2012 HISTORY: Dizziness and chest pain TECHNIQUE: Frontal and lateral views of the chest are obtained. FINDINGS: There is no focal air space opacity, pleural effusion, or pneumothorax seen. The cardiac silhouette size is within normal limits. The osseous structures are stable, expansile lesion of the posterior left fourth rib is again noted and is stable. IMPRESSION: No acute cardiopulmonary process.
--- NOTE | 2018-12-15 15:45 | XR ---
Lumbar spine HISTORY: Left-sided back pain 3 views of the lumbar spine correlated to prior lumbar spine 12/06/2014 Surgical clips are present in the right upper quadrant. Lumbar vertebral bodies show stable height, a lignment, and bone mineralization. There is multilevel spondylosis. Loss of disc height present at L5 -S1. Sclerosis present in the posterior elements of the lower lumbar spine. IMPRESSION: Degenerative disc disease.
[2018-12-15 16:17] VITALS: BP 146/78; PULSE 66; RESP 18
== END 2018-12-15 16:45 | disposition home or self-care (01) ==
LOC: EC 12:59
DX: N39.0 Urinary tract infection, site not specified (principal); M51.36 Other intervertebral disc degeneration, lumbar region; Z87.891 Personal history of nicotine dependence; Z90.49 Acquired absence of other specified parts of digestive tract
CPT/HCPCS: 36415; 71046; 72100; 80053; 81001; 81025; 84484; 85025; 85379; 93005; 99284

== ENCOUNTER 2019-01-26 20:23 | Emergency (ER) | payer OTHER ==
[2019-01-26 20:27] VITALS: BP 125/83; PULSE 71; RESP 18; TEMP 98.6
--- NOTE | 2019-01-26 21:33 | ED ---
General Adult HPI - General Chief complaint: Vaginal Bleeding Stated complaint: Vaginal Bleeding Time Seen by Provider: 01/26/19 20:59 Source: patient Mode of arrival: ambulatory Limitations: no limitations - History of Present Illness Initial comments: Dictation was produced using [employer] dictation software. please excuse any grammatical, word or spelling errors. Chief Complaint: 33-year-old female with past medical history dysfunctional uterine bleeding since of vaginal bleeding for approximately one month. History of Present Illness: 33-year-old female she reports that she has a past medical history dysfunctional uterine bleeding. She presents today with with worsening bleeding for the last month and a half. Patient states she is unable to follow-up with her normal felt coverer because of changes in insurance. Patient reports that over the last month and half she's been having worsening bleeding. She does not know if she is on her menstrual cycle. She has past medical history dysfunctional uterine bleeding. She had an intrauterine device that was placed to treat her bleeding back in October of last year however she does not know if that intrauterine device fell out unknowingly. She had a repeat transvaginal ultrasound that was performed 11 months later which did not identify intrauterine device. Patient denies any nausea, vomiting and diarrhea. She states that the blood is bright red. Patient states she has mild cramping to the right lower quadrant. Patient does not have any bleeding disorders. The ROS documented in this emergency department record has been reviewed and confirmed by me. Those systems with pertinent positive or negative responses have been documented in the HPI. All other systems are other negative and/or noncontributory. PHYSICAL EXAM: General Impression: Alert and oriented x3, not in acute distress HEENT: Normocephalic atraumatic, extra-ocular movements intact, pupils equal and reactive to light bilaterally, mucous membranes moist. Cardiovascular: Heart regular rate and rhythm, S1&S2 audible, no murmurs, rubs or gallops Chest: Lungs clear to auscultation bilaterally, no rhonchi, no wheeze, no rales Abdomen: Bowel sounds present, abdomen soft, non-tender, non-distended, no organomegaly Musculoskeletal: Pulses present and equal in all extremities, no peripheral edema Motor: no focal deficits noted Neurological: CN II-XII grossly intact, no focal motor or sensory deficits noted Skin: Intact with no visualized rashes Psych: Normal affect and mood ED course: 33yo Female presents with chief complaint of vaginal bleeding. As upon arrival are within acceptable limits. Patient reports she has a history of acute blood loss anemia requiring blood transfusion in the past. Patient is documentation was performed at a later date several days after p destinee's disposition. Laboratory evaluation was obtained. Hemoglobin is 11.0. Found to be around patient's baseline. Rest of labs are unremarkable. Urinalysis did show greater than 182 white blood cells. This is likely from uterine bleeding. Transvaginal ultrasound was performed showing no acute findings. Patient found to be and stable medical condition. At time of disposition patient's pain was controlled. Patient told to follow-up with gynecology regarding vaginal bleeding. - Related Data Home Medications Medication Instructions Recorded Confirmed No Known Home Medications 01/26/19 01/26/19 Allergies Allergy/AdvReac Type Severity Reaction Status Date / Time No Known Allergies Allergy Verified 01/26/19 21:02 Review of Systems ROS Statement: Those systems with pertinent positive or pertinent negative responses have been documented in the HPI. ROS Other: All systems not noted in ROS Statement are negative. Past Medical History Additional Past Medical History / Comment(s): fibroid History of Any Multi-Drug Resistant Organisms: None Reported Past Surgical History: Cholecystectomy Additional Past Surgical History / Comment(s): cone biospy Past Anesthesia/Blood Transfusion Reactions: No Reported Reaction Past Psychological History: Anxiety, Bipolar, Depression Smoking Status: Former smoker Past Alcohol Use History: Rare Past Drug Use History: None Reported - Past Family History Mother Family Medical History: Cancer, Diabetes Mellitus, Hyperlipidemia, Hypertension Additional Family Medical History / Comment(s): mom has cervical cancer General Exam Limitations: no limitations Course Vital Signs 01/26/19 20:24 Temperature 98.6 F Pulse Rate 71 Respiratory 18 Rate Blood Pressure 125/83 O2 Sat by Pulse 99 Oximetry Medical Decision Making - Lab Data Result diagrams: 01/26/19 21:49 01/26/19 21:49 Lab Results 01/26/19 01/26/19 01/26/19 Range/Units 21:49 21:49 21:49 WBC (3.8-10.6) k/uL RBC (3.80-5.40) m/uL Hgb (11.4-16.0) gm/dL Hct (34.0-46.0) % MCV (80.0-100.0) fL MCH (25.0-35.0) pg MCHC (31.0-37.0) g/dL RDW (11.5-15.5) % Plt Count (150-450) k/uL Neutrophils % % Lymphocytes % % Monocytes % % Eosinophils % % Basophils % % Neutrophils # (1.3-7.7) k/uL Lymphocytes # (1.0-4.8) k/uL Monocytes # (0-1.0) k/uL Eosinophils # (0-0.7) k/uL Basophils # (0-0.2) k/uL Microcytosis PT (9.0-12.0) sec INR (<1.2) Sodium (137-145) mmol/L Potassium (3.5-5.1) mmol/L Chloride (98-107) mmol/L Carbon Dioxide (22-30) mmol/L Anion Gap mmol/L BUN (7-17) mg/dL Creatinine (0.52-1.04) mg/dL Est GFR (CKD-EPI)AfAm (>60 ml/min/1.73 sqM) Est GFR (CKD-EPI)NonAf (>60 ml/min/1.73 sqM) Glucose (74-99) mg/dL Calcium (8.4-10.2) mg/dL Urine Color Dark Red Urine Appearance Bloody H (Clear) Urine RBC >182 H (0-5) /hpf Ur Squamous Epith Cells 5 H (0-4) /hpf Urine Mucus Many H (None) /hpf Urine HCG, Qual Not Detected (Not Detectd) Blood Type O Positive Blood Type Recheck No Antibody Screen NEGATIVE Spec Expiration Date 01/29/2019234801/26/19 01/26/19 01/26/19 Range/Units 21:49 21:49 21:49 WBC 7.3 (3.8-10.6) k/uL RBC 4.80 (3.80-5.40) m/uL Hgb 11.0 L (11.4-16.0) gm/dL Hct 34.6 (34.0-46.0) % MCV 72.2 L (80.0-100.0) fL MCH 23.0 L (25.0-35.0) pg MCHC 31.9 (31.0-37.0) g/dL RDW 15.2 (11.5-15.5) % Plt Count 190 (150-450) k/uL Neutrophils % 59 % Lymphocytes % 24 % Monocytes % 8 % Eosinophils % 7 % Basophils % 0 % Neutrophils # 4.3 (1.3-7.7) k/uL Lymphocytes # 1.8 (1.0-4.8) k/uL Monocytes # 0.6 (0-1.0) k/uL Eosinophils # 0.5 (0-0.7) k/uL Basophils # 0.0 (0-0.2) k/uL Microcytosis Moderate PT 10.0 (9.0-12.0) sec INR 0.9 (<1.2) Sodium 141 (137-145) mmol/L Potassium 4.0 (3.5-5.1) mmol/L Chloride 108 H (98-107) mmol/L Carbon Dioxide 23 (22-30) mmol/L Anion Gap 10 mmol/L BUN 16 (7-17) mg/dL Creatinine 0.69 (0.52-1.04) mg/dL Est GFR (CKD-EPI)AfAm >90 (>60 ml/min/1.73 sqM) Est GFR (CKD-EPI)NonAf >90 (>60 ml/min/1.73 sqM) Glucose 102 H (74-99) mg/dL Calcium 9.0 (8.4-10.2) mg/dL Urine Color Urine Appearance (Clear) Urine RBC (0-5) /hpf Ur Squamous Epith Cells (0-4) /hpf Urine Mucus (None) /hpf Urine HCG, Qual (Not Detectd) Blood Type Blood Type Recheck Antibody Screen Spec Expiration Date Disposition Clinical Impression: Dysfunctional uterine bleeding Disposition: HOME SELF-CARE Instructions (If sedation given, give patient instructions): Menstruation (ED) Is patient prescribed a controlled substance at d/c from ED?: No Referrals: John Contreras MD [Primary Care Provider] - 1-2 days Time of Disposition: 16:13
[2019-01-26 22:21] LABS: Basophils % (A) 0 %; Eosinophils # (A) 0.5 k/uL (0-0.7); Eosinophils % (A) 7 %; HCT 34.6 % (34.0-46.0); Lymphocytes # (A) 1.8 k/uL (1.0-4.8); Lymphocytes % (A) 24 %; MCHC 31.9 g/dL (31.0-37.0); MCV 72.2 fL (80.0-100.0); Mean Platelet Volume 9.4; Microcytosis Moderate; Monocytes # (A) 0.6 k/uL (0-1.0); Monocytes % (A) 8 %; Neutrophils # (A) 4.3 k/uL (1.3-7.7); Neutrophils % (A) 59 %; Platelet Count 190 k/uL (150-450); RDW 15.2 % (11.5-15.5); WBC 7.3 k/uL (3.8-10.6)
[2019-01-26 22:23] LABS: Mucus,Urine Many /hpf; RBC,Urine >182 /hpf (0-5); Squamous Epithelial Cell,Urine 5 /hpf (0-4)
[2019-01-26 22:25] LABS: Appearance,Urine Bloody (Clear); Color,Urine Dark Red
[2019-01-26 22:26] LABS: INR 0.9 (<1.2)
[2019-01-26 22:30] LABS: African American GFR (CKD) >90 (>60 ml/min/1.73 sqM); Anion Gap 10 mmol/L; Blood Urea Nitrogen 16 mg/dL (7-17); Carbon Dioxide 23 mmol/L (22-30); Chloride 108 mmol/L (98-107); Glucose 102 mg/dL (74-99); Sodium 141 mmol/L (137-145)
--- NOTE | 2019-01-27 03:46 | US ---
EXAM: US Pelvis Complete, Transabdominal US Pelvis, Transvaginal CLINICAL HISTORY: Pain TECHNIQUE: Real-time transabdominal and transvaginal pelvic ultrasound (complete) with image documentation. Transvaginal imaging was used for better evaluation of the endometrium and adnexa. COMPARISON: No relevant prior studies available. FINDINGS: Uterus/cervix: Heterogeneous anteverted uterus measures 2.0 x 1.7 x 1. 6 cm. Indeterminate hypoechoic area anterior to the uterus may be artifactual. Endometrium is within normal limits and measures 6 mm. Right ovary: Not visualized. No adnexal mass. Left ovary: Not visualized. No adnexal mass. Free fluid: No free fluid. Bladder: Not evaluated. Tubes, lines and devices: An intrauterine device is not identified. IMPRESSION: No acute findings. An intrauterine device is not identified. Bilateral ovaries were not visualized.
--- NOTE | 2019-01-28 06:19 | CDI ---
Documentation Clarification OP Dear David COYLE, DO Please provide clinical impression. Thank you, [employer] If you have any questions, please contact Special Service Representative at [phone] [facility]
--- NOTE | 2019-02-10 17:07 | ED ---
Medical Decision Making - Lab Data Result diagrams: 01/26/19 21:49 01/26/19 21:49 Lab Results 01/26/19 01/26/19 01/26/19 Range/Units 21:49 21:49 21:49 WBC (3.8-10.6) k/uL RBC (3.80-5.40) m/uL Hgb (11.4-16.0) gm/dL Hct (34.0-46.0) % MCV (80.0-100.0) fL MCH (25.0-35.0) pg MCHC (31.0-37.0) g/dL RDW (11.5-15.5) % Plt Count (150-450) k/uL Neutrophils % % Lymphocytes % % Monocytes % % Eosinophils % % Basophils % % Neutrophils # (1.3-7.7) k/uL Lymphocytes # (1.0-4.8) k/uL Monocytes # (0-1.0) k/uL Eosinophils # (0-0.7) k/uL Basophils # (0-0.2) k/uL Microcytosis PT (9.0-12.0) sec INR (<1.2) Sodium (137-145) mmol/L Potassium (3.5-5.1) mmol/L Chloride (98-107) mmol/L Carbon Dioxide (22-30) mmol/L Anion Gap mmol/L BUN (7-17) mg/dL Creatinine (0.52-1.04) mg/dL Est GFR (CKD-EPI)AfAm (>60 ml/min/1.73 sqM) Est GFR (CKD-EPI)NonAf (>60 ml/min/1.73 sqM) Glucose (74-99) mg/dL Calcium (8.4-10.2) mg/dL Urine Color Dark Red Urine Appearance Bloody H (Clear) Urine RBC >182 H (0-5) /hpf Ur Squamous Epith Cells 5 H (0-4) /hpf Urine Mucus Many H (None) /hpf Urine HCG, Qual Not Detected (Not Detectd) Blood Type O Positive Blood Type Recheck No Antibody Screen NEGATIVE Spec Expiration Date 01/29/2019 - 234801/26/19 01/26/19 01/26/19 Range/Units 21:49 21:49 21:49 WBC 7.3 (3.8-10.6) k/uL RBC 4.80 (3.80-5.40) m/uL Hgb 11.0 L (11.4-16.0) gm/dL Hct 34.6 (34.0-46.0) % MCV 72.2 L (80.0-100.0) fL MCH 23.0 L (25.0-35.0) pg MCHC 31.9 (31.0-37.0) g/dL RDW 15.2 (11.5-15.5) % Plt Count 190 (150-450) k/uL Neutrophils % 59 % Lymphocytes % 24 % Monocytes % 8 % Eosinophils % 7 % Basophils % 0 % Neutrophils # 4.3 (1.3-7.7) k/uL Lymphocytes # 1.8 (1.0-4.8) k/uL Monocytes # 0.6 (0-1.0) k/uL Eosinophils # 0.5 (0-0.7) k/uL Basophils # 0.0 (0-0.2) k/uL Microcytosis Moderate PT 10.0 (9.0-12.0) sec INR 0.9 (<1.2) Sodium 141 (137-145) mmol/L Potassium 4.0 (3.5-5.1) mmol/L Chloride 108 H (98-107) mmol/L Carbon Dioxide 23 (22-30) mmol/L Anion Gap 10 mmol/L BUN 16 (7-17) mg/dL Creatinine 0.69 (0.52-1.04) mg/dL Est GFR (CKD-EPI)AfAm >90 (>60 ml/min/1.73 sqM) Est GFR (CKD-EPI)NonAf >90 (>60 ml/min/1.73 sqM) Glucose 102 H (74-99) mg/dL Calcium 9.0 (8.4-10.2) mg/dL Urine Color Urine Appearance (Clear) Urine RBC (0-5) /hpf Ur Squamous Epith Cells (0-4) /hpf Urine Mucus (None) /hpf Urine HCG, Qual (Not Detectd) Blood Type Blood Type Recheck Antibody Screen Spec Expiration Date Disposition Clinical Impression: Dysfunctional uterine bleeding Disposition: HOME SELF-CARE Instructions (If sedation given, give patient instructions): Menstruation (ED) Is patient prescribed a controlled substance at d/c from ED?: No Referrals: John Contreras MD [Primary Care Provider] - 1-2 days Time of Disposition: 17:07
== END 2019-01-26 23:55 | disposition home or self-care (01) ==
LOC: EC 20:23
DX: N93.8 Other specified abnormal uterine and vaginal bleeding (principal); R10.31 Right lower quadrant pain; Z97.5 Presence of (intrauterine) contraceptive device; Z87.42 Personal history of other diseases of the female genital tract; Z90.49 Acquired absence of other specified parts of digestive tract; Z87.891 Personal history of nicotine dependence
CPT/HCPCS: 36415; 76830; 80048; 81025; 85025; 85610; 86850; 86900; 86901; 99284

== ENCOUNTER 2019-07-19 19:08 | Emergency (ER) | payer OTHER ==
[2019-07-19] MEDS ORDERED: SODIUM CHLORIDE 0.9% 500 ML 500 ML IV ONE (20:19)
[2019-07-19 20:41] LABS: Basophils % (A) 0 %; Eosinophils # (A) 0.2 k/uL (0-0.7); Eosinophils % (A) 1 %; HCT 23.2 % (34.0-46.0); Hypochromasia Marked; Lymphocytes # (A) 1.9 k/uL (1.0-4.8); Lymphocytes % (A) 14 %; MCH 21.1 pg (25.0-35.0); MCHC 30.2 g/dL (31.0-37.0); MCV 69.9 fL (80.0-100.0); Mean Platelet Volume 9.5; Microcytosis Moderate; Monocytes # (A) 0.4 k/uL (0-1.0); Monocytes % (A) 3 %; Neutrophils # (A) 10.6 k/uL (1.3-7.7); Neutrophils % (A) 80 %; Platelet Count 232 k/uL (150-450); Poikilocytosis Slight; RBC 3.32 m/uL (3.80-5.40); RDW 15.2 % (11.5-15.5); WBC 13.3 k/uL (3.8-10.6)
[2019-07-19 20:47] LABS: ALT 15 U/L (4-34); AST 19 U/L (14-36); African American GFR (CKD) >90 (>60 ml/min/1.73 sqM); Albumin 4.1 g/dL (3.5-5.0); Alkaline Phosphatase 59 U/L (38-126); Anion Gap 12 mmol/L; Blood Urea Nitrogen 13 mg/dL (7-17); Carbon Dioxide 20 mmol/L (22-30); Chloride 107 mmol/L (98-107); Glucose 100 mg/dL (74-99); Non-African American GFR(CKD) >90 (>60 ml/min/1.73 sqM); Sodium 139 mmol/L (137-145); Total Bilirubin 0.4 mg/dL (0.2-1.3); Total Protein 7.4 g/dL (6.3-8.2)
[2019-07-19] MEDS ORDERED: MORPHINE SULFATE 4 MG/ML SYRINGE IVP STA (21:16)
--- NOTE | 2019-07-19 21:24 | ED ---
General Adult HPI - General Source: patient, RN notes reviewed Mode of arrival: ambulatory Limitations: no limitations <Miah Manzo - Last Filed: 07/20/19 01:54> <Cyril Beck - Last Filed: 07/21/19 01:30> - General Chief complaint: Urogenital Stated complaint: vaginal bleeding Time Seen by Provider: 07/19/19 19:51 - History of Present Illness Initial comments: 34-year-old female with a past medical history of fibroids presents to the emergency department for a chief complaint of vaginal bleeding. This has been ongoing for about 3 weeks. Patient states that she has been soaking through a pad 3 times every hour for the past 3 weeks. States that 12 days ago her [employer]M T[employer]PER OPERATOR out of [place] started her on progesterone and she finished this 2 days ago. States it did not help. States she was then directed to start oral contraceptive pills which she started 2 days ago. Patient states she is having some pelvic and left lower quadrant pain. States that this is not unusual for her as she has a history of cysts and fibroids. Denies fevers or chills. Denies nausea vomiting or diarrhea. Patient does admit that the past few days she started to feel lightheaded and weak.Patient has no other complaints at this time including shortness of breath, chest pain, abdominal pain, nausea or vomiting, headache, or visual changes. (Miah Manzo) - Related Data Previous Rx's Medication Instructions Recorded Ferrous Sulfate [Iron] 325 mg PO BID #30 tablet 07/19/19 Allergies Allergy/AdvReac Type Severity Reaction Status Date / Time No Known Allergies Allergy Verified 07/19/19 19:19 Review of Systems ROS Other: All systems not noted in ROS Statement are negative. <Miah Manzo - Last Filed: 07/20/19 01:54> ROS Other: All systems not noted in ROS Statement are negative. <Cyril Beck - Last Filed: 07/21/19 01:30> ROS Statement: Those systems with pertinent positive or pertinent negative responses have been documented in the HPI. Past Medical History Additional Past Medical History / Comment(s): fibroid History of Any Multi-Drug Resistant Organisms: None Reported Past Surgical History: Cholecystectomy Additional Past Surgical History / Comment(s): cone biospy Past Anesthesia/Blood Transfusion Reactions: No Reported Reaction Past Psychological History: Anxiety, Bipolar, Depression Smoking Status: Former smoker Past Alcohol Use History: Rare Past Drug Use History: None Reported - Past Family History Mother Family Medical History: Cancer, Diabetes Mellitus, Hyperlipidemia, Hypertension Additional Family Medical History / Comment(s): mom has cervical cancer <Miah Manzo - Last Filed: 07/20/19 01:54> General Exam Limitations: no limitations General appearance: alert, in no apparent distress Head exam: Present: atraumatic, normocephalic, normal inspection Eye exam: Present: normal appearance, PERRL, EOMI. Absent: scleral icterus, conjunctival injection, periorbital swelling ENT exam: Present: normal exam, mucous membranes moist Neck exam: Present: normal inspection. Absent: tenderness, meningismus, lymphadenopathy Respiratory exam: Present: normal lung sounds bilaterally. Absent: respiratory distress, wheezes, rales, rhonchi, stridor Cardiovascular Exam: Present: regular rate, normal rhythm, normal heart sounds. Absent: systolic murmur, diastolic murmur, rubs, gallop, clicks GI/Abdominal exam: Present: soft, normal bowel sounds. Absent: distended, tenderness, guarding, rebound, rigid External exam: Present: normal external exam. Absent: erythema, swelling, lesions, lacerations, ecchymosis, other Speculum exam: Present: vaginal bleeding (moderate vaginal bleeding with clotting noted). Absent: normal speculum exam, erythema, vaginal discharge, cervical discharge, foreign body, tissue, laceration By manual exam: Present: adnexal tenderness (left adnexal tenderness), uterine tenderness (uterine tenderness). Absent: normal by manual exam, cervical motion tenderness, adnexal mass, uterine enlargement Neurological exam: Present: alert <Miah Manzo P - Last Filed: 07/20/19 01:54> Course Vital Signs 07/19/19 07/19/19 19:19 23:21 Temperature 98.2 F 97.7 F Pulse Rate 96 85 Respiratory 18 16 Rate Blood Pressure 146/81 131/68 O2 Sat by Pulse 97 100 Oximetry Medical Decision Making - Lab Data Result diagrams: 07/19/19 20:00 07/19/19 20:00 <Miah Manzo P - Last Filed: 07/20/19 01:54> - Lab Data Result diagrams: 07/19/19 20:00 07/19/19 20:00 <Cyril Beck - Last Filed: 07/21/19 01:30> - Medical Decision Making She had moderate vaginal bleeding on exam however no significant hemorrhage. She did have clots noted. Patient is anemic with a hemoglobin of 7.0. However hemodynamically stable. An vaginal ultrasound was obtained which shows complex area with fluid in the posterior pelvis behind the uterus. Not clear if this is related to Ovarian cyst or some loculated free fluid in the cul-de-sac. All fibroid noted in the uterine fundus. Patient sees an [facility]M T[employer]PER OPERATOR in [place]. Dr. Beck spoke with Dr Hanson about this patient. States that as patient has then on progesterone for 10 days and then started on oral contraceptive pills and is hemodynamically stable she feels patient is getting appropriate treatment. She recommends patient follow up with her FORM TAMPER OPERATOR tomorrow for repeat blood work as well as to discuss ultrasound results. Patient is agreeable to this. She does agree to return if she has any worsening symptoms such as increased or worsening lightheadedness or any other concerns. I was present for this patient (Miah Manzo) case discussed with FORM TAMPER OPERATOR on-call Dr. Hanson, recommends continue oral contraceptives, recommends adding supplemental iron. Patient okay for discharge with close outpatient follow-up with her FORM T[employer]PER OPERATOR. Return with [place] of lightheadedness, worsening bleeding and concern for worsening anemia. (Cyril Beck) - Lab Data Lab Results 07/19/19 07/19/19 07/19/19 Range/Units 20:00 20:00 20:00 WBC 13.3 H (3.8-10.6) k/uL RBC 3.32 L (3.80-5.40) m/uL Hgb 7.0 L (11.4-16.0) gm/dL Hct 23.2 L (34.0-46.0) % MCV 69.9 L (80.0-100.0) fL MCH 21.1 L (25.0-35.0) pg MCHC 30.2 L (31.0-37.0) g/dL RDW 15.2 (11.5-15.5) % Plt Count 232 (150-450) k/uL Neutrophils % 80 % Lymphocytes % 14 % Monocytes % 3 % Eosinophils % 1 % Basophils % 0 % Neutrophils # 10.6 H (1.3-7.7) k/uL Lymphocytes # 1.9 (1.0-4.8) k/uL Monocytes # 0.4 (0-1.0) k/uL Eosinophils # 0.2 (0-0.7) k/uL Basophils # 0.0 (0-0.2) k/uL Hypochromasia Marked Poikilocytosis Slight Microcytosis Moderate Sodium 139 (137-145) mmol/L Potassium 4.0 (3.5-5.1) mmol/L Chloride 107 (98-107) mmol/L Carbon Dioxide 20 L (22-30) mmol/L Anion Gap 12 mmol/L BUN 13 (7-17) mg/dL Creatinine 0.75 (0.52-1.04) mg/dL Est GFR (CKD-EPI)AfAm >90 (>60 ml/min/1.73 sqM) Est GFR (CKD-EPI)NonAf >90 (>60 ml/min/1.73 sqM) Glucose 100 H (74-99) mg/dL Calcium 9.0 (8.4-10.2) mg/dL Total Bilirubin 0.4 (0.2-1.3) mg/dL AST 19 (14-36) U/L ALT 15 (4-34) U/L Alkaline Phosphatase 59 (38-126) U/L Total Protein 7.4 (6.3-8.2) g/dL Albumin 4.1 (3.5-5.0) g/dL Urine Color Urine Appearance (Clear) Urine pH (5.0-8.0) Ur Specific [place] (1.001-1.035) Urine Protein (Negative) Urine Glucose (UA) (Negative) Urine Ketones (Negative) Urine Blood (Negative) Urine Nitrite (Negative) Urine Bilirubin (Negative) Urine Urobilinogen (<2.0) mg/dL Ur Leukocyte Esterase (Negative) Urine RBC (0-5) /hpf Urine WBC (0-5) /hpf Ur Squamous Epith Cells (0-4) /hpf Urine Mucus (None) /hpf Urine HCG, Qual (Not Detectd) Blood Type O Positive Blood Type Recheck O Pos Bld Type Recheck Status No Antibody Screen NEGATIVE Spec Expiration Date 07/22/2019 - 229907/19/19 07/19/19 Range/Units 21:20 21:20 WBC (3.8-10.6) k/uL RBC (3.80-5.40) m/uL Hgb (11.4-16.0) gm/dL Hct (34.0-46.0) % MCV (80.0-100.0) fL MCH (25.0-35.0) pg MCHC (31.0-37.0) g/dL RDW (11.5-15.5) % Plt Count (150-450) k/uL Neutrophils % % Lymphocytes % % Monocytes % % Eosinophils % % Basophils % % Neutrophils # (1.3-7.7) k/uL Lymphocytes # (1.0-4.8) k/uL Monocytes # (0-1.0) k/uL Eosinophils # (0-0.7) k/uL Basophils # (0-0.2) k/uL Hypochromasia Poikilocytosis Microcytosis Sodium (137-145) mmol/L Potassium (3.5-5.1) mmol/L Chloride (98-107) mmol/L Carbon Dioxide (22-30) mmol/L Anion Gap mmol/L BUN (7-17) mg/dL Creatinine (0.52-1.04) mg/dL Est GFR (CKD-EPI)AfAm (>60 ml/min/1.73 sqM) Est GFR (CKD-EPI)NonAf (>60 ml/min/1.73 sqM) Glucose (74-99) mg/dL Calcium (8.4-10.2) mg/dL Total Bilirubin (0.2-1.3) mg/dL AST (14-36) U/L ALT (4-34) U/L Alkaline Phosphatase (38-126) U/L Total Protein (6.3-8.2) g/dL Albumin (3.5-5.0) g/dL Urine Color Light Red Urine Appearance Cloudy H (Clear) Urine pH 5.5 (5.0-8.0) Ur Specific [place] 1.023 (1.001-1.035) Urine Protein 1+ H (Negative) Urine Glucose (UA) Negative (Negative) Urine Ketones Trace H (Negative) Urine Blood Large H (Negative) Urine Nitrite Negative (Negative) Urine Bilirubin Negative (Negative) Urine Urobilinogen 2.0 (<2.0) mg/dL Ur Leukocyte Esterase Moderate H (Negative) Urine RBC >182 H (0-5) /hpf Urine WBC 4 (0-5) /hpf Ur Squamous Epith Cells 7 H (0-4) /hpf Urine Mucus Few H (None) /hpf Urine HCG, Qual Not Detected (Not Detectd) Blood Type Blood Type Recheck Bld Type Recheck Status Antibody Screen Spec Expiration Date Disposition Is patient prescribed a controlled substance at d/c from ED?: No Time of Disposition: 23:55 <Miah Manzo P - Last Filed: 07/20/19 01:54> <Cyril Beck - Last Filed: 07/21/19 01:30> Clinical Impression: Vaginal bleeding, Anemia Disposition: HOME SELF-CARE Condition: Good Instructions (If sedation given, give patient instructions): Dysfunctional Uterine Bleeding (ED), Anemia (ED) Additional Instructions: please follow up with your FORM TAMPER OPERATOR tomorrow regarding low hemoglobin as well as ultrasound results. you need repeat blood work. Continue to take oral contraceptive pills. Take ferrous sulfate twice a day. If you have any worsening symptoms return immediately to the emergency department. Prescriptions: Ferrous Sulfate [Iron] 325 mg PO BID #30 tablet Referrals: Sandra Oates MD [REFERRING] - 1-2 days
[2019-07-19 21:45] LABS: Appearance,Urine Cloudy (Clear); Bilirubin,Urine Negative (Negative); Blood,Urine Large (Negative); Color,Urine Light Red; Glucose,Urine (UA) Negative (Negative); Ketones,Urine Trace (Negative); Leukocyte Esterase,Urine Moderate (Negative); Mucus,Urine Few /hpf; Nitrite,Urine Negative (Negative); PH, Urine 5.5 (5.0-8.0); Protein,Urine 1+ (Negative); RBC,Urine >182 /hpf (0-5); Specific Gravity,Urine 1.023 (1.001-1.035); Squamous Epithelial Cell,Urine 7 /hpf (0-4); WBC,Urine 4 /hpf (0-5)
[2019-07-19] MEDS ORDERED: ONDANSETRON 4 MG/2 ML VIAL IVP STA (22:44)
--- NOTE | 2019-07-19 22:55 | US ---
EXAMINATION TYPE: US transvaginal DATE OF EXAM: 07/19/2019 COMPARISON: US CLINICAL HISTORY: vaginal bleeding. Vaginal bleeding x 3 weeks. Hx fibroids, cysts on ovaries. LMP un known. . TECHNIQUE: Transvaginal (TV). Date of LMP: Unknown EXAM MEASUREMENTS: Uterus: 11.9 x 7.3 x 6.3 cm Endometrial Stripe: Difficult to distinguish. Area measured posterior to the uterus: 6.2 x 4.1 x 2.9 cm. 1. Uterus: Anteverted. Heterogeneous. Isoechoic area seen right measurin.1 x 2.1 x 2.4 cm. Anech oic area seen in the MIKEY measurin.6 x 1.1 x 0.7 cm. 2. Endometrium: Difficult to distinguish. As mentioned above, area measured posterior to the uterus: 6.2 x 4.1 x 2.9 cm. Arterial and venous wa veforms are shown. Possible enlarged right or left ovary. Anechoic areas seen within this area, large st measurin.3 x 2.8 x 2.8 cm. 5. Bilateral Adnexa: Appear to be wnl 6. Posterior cul-de-sac: There appears to be a small amount of fluid. IMPRESSION: Complex area with fluid in the posterior pelvis behind the uterus. It is not clear if thi s is related to complex ovarian cyst or some loculated free fluid in the cul-de-sac. Cystic fluid col lection measures 3.3 x 2.8 cm. Location of the ovaries is not certain. Small fibroid in the uterine f undus measures 3 cm.
[2019-07-19 23:22] VITALS: BP 131/68; PULSE 85; RESP 16; TEMP 97.7
== END 2019-07-20 00:03 | disposition home or self-care (01) ==
LOC: EC 19:08
DX: N93.9 Abnormal uterine and vaginal bleeding, unspecified (principal); D64.9 Anemia, unspecified; N89.8 Other specified noninflammatory disorders of vagina; Z87.891 Personal history of nicotine dependence; Z90.49 Acquired absence of other specified parts of digestive tract
CPT/HCPCS: 36415; 86900; 86901; 80053; 85025; 86850; 81001; 81025; 93976; 76830; 99284; 96374; 96375; 96361 ×2; J2270; J2405

== ENCOUNTER 2020-11-21 22:05 | Emergency (ER) | payer OTHER ==
[2020-11-21 22:24] VITALS: TEMP 97.8
[2020-11-21] MEDS ORDERED: SODIUM CHLORIDE 0.9% 500 ML 500 ML IV STA (22:43)
--- NOTE | 2020-11-21 22:48 | ED ---
General Adult HPI - General Chief complaint: Dizziness Stated complaint: lightheaded/dizziness Time Seen by Provider: 11/21/20 22:27 Source: patient Mode of arrival: ambulatory Limitations: no limitations - History of Present Illness Initial comments: This patient is a 35-year-old woman who presents to be evaluated for constellation of symptoms that she states of been going on for number of weeks to months. Patient is complaining of fatigue, at times feeling some generalized weakness, sleeping more, intermittent lightheadedness and dizziness. She has also had weight loss, she states about 30 pounds over the past few months. 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 She did check her blood sugar last night and it was 107 (she used a colleagues equipment). -: month(s) Severity scale (1-10): 0 Consistency: intermittent Improves with: none Worsens with: none Associated Symptoms: denies other symptoms - Related Data Previous Rx's Medication Instructions Recorded Ferrous Sulfate [Iron] 325 mg PO DAILY #30 tablet 11/22/20 Nitrofurantoin Monohyd/M-Cryst 100 mg PO Q12HR #6 cap 11/22/20 [Macrobid] Allergies Allergy/AdvReac Type Severity Reaction Status Date / Time No Known Allergies Allergy Verified 11/21/20 23:18 Review of Systems ROS Statement: Those systems with pertinent positive or pertinent negative responses have been documented in the HPI. ROS Other: All systems not noted in ROS Statement are negative. Constitutional: Reports: weakness. Denies: fever, chills Eyes: Denies: vision change ENT: Denies: throat pain Respiratory: Denies: cough, dyspnea Cardiovascular: Denies: chest pain, palpitations, orthopnea, syncope Gastrointestinal: Denies: abdominal pain, vomiting, diarrhea, melena, hematochezia Genitourinary: Reports: abnormal menses (Patient states she is having irregular menstrual cycles, especially last month her cycle seem to be longer.). Denies: dysuria, hematuria Musculoskeletal: Denies: back pain, arthralgia Skin: Denies: rash Neurological: Denies: headache, weakness, numbness, paresthesias Past Medical History Additional Past Medical History / Comment(s): fibroids History of Any Multi-Drug Resistant Organisms: None Reported Past Surgical History: Cholecystectomy Additional Past Surgical History / Comment(s): cone biospy Past Anesthesia/Blood Transfusion Reactions: No Reported Reaction Past Psychological History: Anxiety, Bipolar, Depression Smoking Status: Never smoker Past Alcohol Use History: Rare Past Drug Use History: None Reported - Past Family History Mother Family Medical History: Cancer, Diabetes Mellitus, Hyperlipidemia, Hypertension Additional Family Medical History / Comment(s): mom has cervical cancer General Exam Limitations: no limitations General appearance: alert, in no apparent distress Head exam: Present: atraumatic, normocephalic Eye exam: Present: normal appearance, PERRL, EOMI. Absent: scleral icterus, co njunctival injection ENT exam: Present: normal oropharynx, mucous membranes moist Neck exam: Present: normal inspection, full ROM Respiratory exam: Present: normal lung sounds bilaterally. Absent: respiratory distress, wheezes, rales, rhonchi, stridor Cardiovascular Exam: Present: regular rate, normal rhythm, normal heart sounds. Absent: systolic murmur, diastolic murmur, rubs, gallop GI/Abdominal exam: Present: soft. Absent: distended, tenderness, guarding, rebound, rigid, mass Extremities exam: Present: normal inspection, normal capillary refill. Absent: pedal edema, calf tenderness Back exam: Present: normal inspection. Absent: CVA tenderness (R), CVA tenderness (L) Neurological exam: Present: alert, oriented X3. Absent: motor sensory deficit Skin exam: Present: warm, dry, intact, normal color. Absent: rash Course Vital Signs 11/21/20 22:21 Temperature 97.8 F Pulse Rate 79 Respiratory 20 Rate Blood Pressure 168/94 O2 Sat by Pulse 100 Oximetry EKG Findings - EKG Results: EKG: interpreted by CORNELIO, sinus rhythm (Rate 69 bpm), normal axis, normal QRS - Blocks, [place], Hypertrophy, ST Abn: Repolarization changes or abnormalities: nonspecific abnormality, ST segment, and/or T wave Medical Decision Making - Lab Data Result diagrams: 11/21/20 22:43 11/21/20 22:43 Lab Results 11/21/20 11/21/20 11/21/20 Range/Units 22:43 22:43 22:43 WBC 6.7 (3.8-10.6) k/uL RBC 4.60 (3.80-5.40) m/uL Hgb 8.0 L (11.4-16.0) gm/dL Hct 28.7 L (34.0-46.0) % MCV 62.5 L (80.0-100.0) fL MCH 17.5 L (25.0-35.0) pg MCHC 28.0 L (31.0-37.0) g/dL RDW 15.8 H (11.5-15.5) % Plt Count 261 (150-450) k/uL MPV 9.0 Neutrophils % 56 % Lymphocytes % 31 % Monocytes % 6 % Eosinophils % 4 % Basophils % 1 % Neutrophils # 3.7 (1.3-7.7) k/uL Lymphocytes # 2.1 (1.0-4.8) k/uL Monocytes # 0.4 (0-1.0) k/uL Eosinophils # 0.2 (0-0.7) k/uL Basophils # 0.0 (0-0.2) k/uL Hypochromasia Marked Poikilocytosis Slight Microcytosis Marked Sodium 137 (137-145) mmol/L Potassium 3.6 (3.5-5.1) mmol/L Chloride 105 (98-107) mmol/L Carbon Dioxide 27 (22-30) mmol/L Anion Gap 5 mmol/L BUN 13 (7-17) mg/dL Creatinine 0.72 (0.52-1.04) mg/dL Est GFR (CKD-EPI)AfAm >90 (>60 ml/min/1.73 sqM) Est GFR (CKD-EPI)NonAf >90 (>60 ml/min/1.73 sqM) Glucose 98 (74-99) mg/dL Plasma Lactic Acid [place] (0.7-2.0) mmol/L Calcium 8.7 (8.4-10.2) mg/dL Total Bilirubin 0.3 (0.2-1.3) mg/dL AST 25 (14-36) U/L ALT 11 (4-34) U/L Alkaline Phosphatase 56 (38-126) U/L Total Protein 6.7 (6.3-8.2) g/dL Albumin 3.7 (3.5-5.0) g/dL Urine Color Yellow Urine Appearance Cloudy H (Clear) Urine pH 6.0 (5.0-8.0) Ur Specific [place] 1.026 (1.001-1.035) Urine Protein Trace H (Negative) Urine Glucose (UA) Negative (Negative) Urine Ketones Negative (Negative) Urine Blood Negative (Negative) Urine Nitrite Negative (Negative) Urine Bilirubin Negative (Negative) Urine Urobilinogen 2.0 (<2.0) mg/dL Ur Leukocyte Esterase Large H (Negative) Urine RBC 3 (0-5) /hpf Urine WBC 40 H (0-5) /hpf Ur Squamous Epith Cells 14 H (0-4) /hpf Urine Bacteria Rare H (None) /hpf Urine Mucus Many H (None) /hpf Urine HCG, Qual (Not Detectd) 11/21/20 11/21/20 Range/Units 22:43 22:44 WBC (3.8-10.6) k/uL RBC (3.80-5.40) m/uL Hgb (11.4-16.0) gm/dL Hct (34.0-46.0) % MCV (80.0-100.0) fL MCH (25.0-35.0) pg MCHC (31.0-37.0) g/dL RDW (11.5-15.5) % Plt Count (150-450) k/uL MPV Neutrophils % % Lymphocytes % % Monocytes % % Eosinophils % % Basophils % % Neutrophils # (1.3-7.7) k/uL Lymphocytes # (1.0-4.8) k/uL Monocytes # (0-1.0) k/uL Eosinophils # (0-0.7) k/uL Basophils # (0-0.2) k/uL Hypochromasia Poikilocytosis Microcytosis Sodium (137-145) mmol/L Potassium (3.5-5.1) mmol/L Chloride (98-107) mmol/L Carbon Dioxide (22-30) mmol/L Anion Gap mmol/L BUN (7-17) mg/dL Creatinine (0.52-1.04) mg/dL Est GFR (CKD-EPI)AfAm (>60 ml/min/1.73 sqM) Est GFR (CKD-EPI)NonAf (>60 ml/min/1.73 sqM) Glucose (74-99) mg/dL Plasma Lactic Acid [place] 0.7 (0.7-2.0) mmol/L Calcium (8.4-10.2) mg/dL Total Bilirubin (0.2-1.3) mg/dL AST (14-36) U/L ALT (4-34) U/L Alkaline Phosphatase (38-126) U/L Total Protein (6.3-8.2) g/dL Albumin (3.5-5.0) g/dL Urine Color Urine Appearance (Clear) Urine pH (5.0-8.0) Ur Specific [place] (1.001-1.035) Urine Protein (Negative) Urine Glucose (UA) (Negative) Urine Ketones (Negative) Urine Blood (Negative) Urine Nitrite (Negative) Urine Bilirubin (Negative) Urine Urobilinogen (<2.0) mg/dL Ur Leukocyte Esterase (Negative) Urine RBC (0-5) /hpf Urine WBC (0-5) /hpf Ur Squamous Epith Cells (0-4) /hpf Urine Bacteria (None) /hpf Urine Mucus (None) /hpf Urine HCG, Qual Not Detected (Not Detectd) Disposition Clinical Impression: Anemia, Fatigue, Urinary tract infection Disposition: HOME SELF-CARE Condition: Good Instructions (If sedation given, give patient instructions): Anemia (ED), Urinary Tract Infection in Women (ED) Prescriptions: Ferrous Sulfate [Iron] 325 mg PO DAILY #30 tablet Nitrofurantoin Monohyd/M-Cryst [Macrobid] 100 mg PO Q12HR #6 cap Is patient prescribed a controlled substance at d/c from ED?: No Referrals: None,Stated [Primary Care Provider] - 1-2 days Solitario Acuna MD [STAFF PHYSICIAN] - 1-2 days
--- NOTE | 2020-11-21 23:50 | XR ---
EXAMINATION TYPE: XR chest 2V DATE OF EXAM: 11/21/2020 COMPARISON: 12/15/2018 HISTORY: Dizziness TECHNIQUE: FINDINGS: Heart and mediastinum are normal. Lungs are clear. Diaphragm is normal. Bony thorax appears normal. IMPRESSION: Normal chest. No change.
[2020-11-21 23:53] LABS: Basophils % (A) 1 %; Eosinophils # (A) 0.2 k/uL (0-0.7); Eosinophils % (A) 4 %; HCT 28.7 % (34.0-46.0); Hypochromasia Marked; Lymphocytes # (A) 2.1 k/uL (1.0-4.8); Lymphocytes % (A) 31 %; MCH 17.5 pg (25.0-35.0); MCV 62.5 fL (80.0-100.0); Microcytosis Marked; Monocytes # (A) 0.4 k/uL (0-1.0); Monocytes % (A) 6 %; Neutrophils # (A) 3.7 k/uL (1.3-7.7); Neutrophils % (A) 56 %; Platelet Count 261 k/uL (150-450); Poikilocytosis Slight; RDW 15.8 % (11.5-15.5); WBC 6.7 k/uL (3.8-10.6)
[2020-11-21 23:56] LABS: Appearance,Urine Cloudy (Clear); Bacteria,Urine Rare /hpf; Bilirubin,Urine Negative (Negative); Blood,Urine Negative (Negative); Color,Urine Yellow; Glucose,Urine (UA) Negative (Negative); Ketones,Urine Negative (Negative); Leukocyte Esterase,Urine Large (Negative); Mucus,Urine Many /hpf; Nitrite,Urine Negative (Negative); Protein,Urine Trace (Negative); RBC,Urine 3 /hpf (0-5); Specific Gravity,Urine 1.026 (1.001-1.035); Squamous Epithelial Cell,Urine 14 /hpf (0-4); WBC,Urine 40 /hpf (0-5)
[2020-11-21 23:58] LABS: ALT 11 U/L (4-34); AST 25 U/L (14-36); African American GFR (CKD) >90 (>60 ml/min/1.73 sqM); Albumin 3.7 g/dL (3.5-5.0); Alkaline Phosphatase 56 U/L (38-126); Anion Gap 5 mmol/L; Blood Urea Nitrogen 13 mg/dL (7-17); Calcium 8.7 mg/dL (8.4-10.2); Carbon Dioxide 27 mmol/L (22-30); Chloride 105 mmol/L (98-107); Glucose 98 mg/dL (74-99); Non-African American GFR(CKD) >90 (>60 ml/min/1.73 sqM); Potassium 3.6 mmol/L (3.5-5.1); Sodium 137 mmol/L (137-145); Total Bilirubin 0.3 mg/dL (0.2-1.3); Total Protein 6.7 g/dL (6.3-8.2)
[2020-11-22] MEDS ORDERED: NITROFURANTOIN MONOHYD/M-CRYST 100 MG CAP PO STA (00:12)
[2020-11-22 00:48] VITALS: BP 150/100; PULSE 83; RESP 16
[2020-11-22] MEDS ORDERED: IBUPROFEN 600 MG TAB PO STA (00:49)
== END 2020-11-22 00:53 | disposition home or self-care (01) ==
LOC: EC 22:05
DX: N39.0 Urinary tract infection, site not specified (principal); D64.9 Anemia, unspecified; R53.83 Other fatigue; F41.9 Anxiety disorder, unspecified; F32.9 Major depressive disorder, single episode, unspecified
CPT/HCPCS: 36415; 71046; 80053; 81001; 81025; 83605; 84443; 85025; 93005; 96360; 99284

== ENCOUNTER 2021-11-18 19:15 | Emergency (ER) | payer OTHER ==
[2021-11-18 19:51] VITALS: BP 166/99; PULSE 99; RESP 18; TEMP 98
--- NOTE | 2021-11-18 20:50 | XR ---
EXAMINATION TYPE: XR ankle complete RT DATE OF EXAM: 11/18/2021 COMPARISON: NONE HISTORY: Pain TECHNIQUE: 3 views FINDINGS: There are large plantar and Achilles calcaneal spurs. There is mild soft tissue swelling ar ound the ankle joint. I see no fracture nor dislocation. IMPRESSION: Soft tissue swelling. No fracture.
--- NOTE | 2021-11-18 20:51 | XR ---
EXAMINATION TYPE: XR foot complete RT DATE OF EXAM: 11/18/2021 COMPARISON: NONE HISTORY: Pain TECHNIQUE: 3 views FINDINGS: Metatarsals are intact. Toes appear intact. There is minimal spurring at the first MP joint . There is plantar and Achilles calcaneal spurring. IMPRESSION: There is degenerative spurring. No fracture seen. No evidence of inflammatory arthritis.
--- NOTE | 2021-11-18 22:50 | ED ---
General Adult HPI - General Chief complaint: Extremity Problem,Nontraumatic Stated complaint: R foot pain Time Seen by Provider: 11/18/21 22:40 Source: patient, RN notes reviewed, old records reviewed Mode of arrival: wheelchair - History of Present Illness Initial comments: 36-year-old female presents with complaints of right foot pain and swelling since Friday. She states that she stood up off the couch and started to feel the pain. She states she did not roll, twist or injure her ankle. She states it has been progressively getting more painful. She denies any fevers. -: days(s) (3) Location: right, lower extremity (foot) Severity scale (1-10): 10 Quality: constant Consistency: constant Improves with: none Worsens with: movement, other (palpation) Associated Symptoms: denies other symptoms Treatments Prior to Arrival: none - Related Data Previous Rx's Medication Instructions Recorded Ferrous Sulfate [Iron] 325 mg PO DAILY #30 tablet 11/22/20 Nitrofurantoin Monohyd/M-Cryst 100 mg PO Q12HR #6 cap 11/22/20 [Macrobid] Ibuprofen [Motrin] 800 mg PO Q6HR #30 tab 11/18/21 Allergies Allergy/AdvReac Type Severity Reaction Status Date / Time No Known Allergies Allergy Verified 11/18/21 19:51 Review of Systems ROS Statement: Those systems with pertinent positive or pertinent negative responses have been documented in the HPI. ROS Other: All systems not noted in ROS Statement are negative. Past Medical History Additional Past Medical History / Comment(s): fibroids History of Any Multi-Drug Resistant Organisms: None Reported Past Surgical History: Cholecystectomy Additional Past Surgical History / Comment(s): cone biospy Past Anesthesia/Blood Transfusion Reactions: No Reported Reaction Past Psychological History: Anxiety, Bipolar, Depression Smoking Status: Never smoker Past Alcohol Use History: Rare Past Drug Use History: None Reported - Past Family History Mother Family Medical History: Cancer, Diabetes Mellitus, Hyperlipidemia, Hypertension Additional Family Medical History / Comment(s): mom has cervical cancer General Exam Limitations: no limitations General appearance: alert, in no apparent distress Respiratory exam: Present: normal lung sounds bilaterally. Absent: respiratory distress, accessory muscle use Cardiovascular Exam: Present: regular rate Right Lower Leg exam: Present: full ROM. Absent: tenderness Ankle exam: Present: tenderness, swelling. Absent: abrasion, laceration, ecchymosis, deformity, crepitus, dislocation, erythema Foot/Toe exam: Present: tenderness, swelling. Absent: abrasion, laceration, ecchymosis, deformity, crepitus, dislocation, erythema Neurovascular tendon exam: Present: no vascular compromise (Pedal pulses present and bounding). Absent: abnormal cap refill, extremity cold to touch, pallor, foot drop Neurological exam: Present: alert, oriented X3 Psychiatric exam: Present: normal affect, normal mood Skin exam: Present: warm, dry, normal color. Absent: cyanosis, diaphoretic, erythema, petechiae, pallor Course Vital Signs 11/18/21 19:49 Temperature 98 F Pulse Rate 99 Respiratory 18 Rate Blood Pressure 166/99 O2 Sat by Pulse 100 Oximetry Medical Decision Making - Medical Decision Making Patient presents with 3 days of right foot and ankle swelling and pain. There is no sign of erythema, no puncture wounds, pedal pulses are present. Foot is pink ,warm and dry. No evidence of foreign body or open wounds. Patient is afebrile. X-rays negative for foreign body or fracture. This appears to be a foot/ankle sprain. She was directed to rest, ice, elevate and wear Sundar wrap. Follow-up with her primary care doctor next week. Strict return parameters were discussed with patient to return if any increasing pain, numbness, tingling or fevers. Patient is agreeable to this plan of care. Case discussed with Dr. Beck Disposition Clinical Impression: Foot swelling Disposition: HOME SELF-CARE Condition: Good Additional Instructions: Rest, ice, wear Sundar wrap and elevate. Take Motrin as prescribed every 8 hours. Follow-up with your primary care doctor next week. Return to the emergency room with any numbness, fevers or worsening pain. Prescriptions: Ibuprofen [Motrin] 800 mg PO Q6HR #30 tab Is patient prescribed a controlled substance at d/c from ED?: No Referrals: Quinn Quan DO [Primary Care Provider] - 1-2 days Time of Disposition: 23:00
[2021-11-18] MEDS ORDERED: KETOROLAC 15 MG/ML 1 ML VIAL IM STA (23:17)
== END 2021-11-18 23:40 | disposition home or self-care (01) ==
LOC: EC 19:15
DX: M79.671 Pain in right foot (principal); M79.89 Other specified soft tissue disorders; X58.XXXA Exposure to other specified factors, initial encounter
CPT/HCPCS: 73610; 73630; 99283; 96372; J1885

== ENCOUNTER → 2022-01-23 | Outpatient (CLI) | payer OTHER ==
--- NOTE | 2022-01-23 10:27 | MR ---
EXAMINATION TYPE: MR brain wo/w con DATE OF EXAM: 01/23/2022 COMPARISON: None HISTORY: Headache TECHNIQUE: Multiplanar, multisequence images of the brain and brainstem is performed without and with IV contras t, utilizing 13 mL intravenous Gadavist . FINDINGS: Diffusion weighted images demonstrate no evidence of a recent infarct or other diffusion ab normality. There is no extra-axial fluid collection or significant white matter signal abnormality. The ventricular system and cisternal spaces are normal in size and appearance. The brain volume is age appropriate. Midline structures demonstrate normal morphology. Cerebellar tonsils are low-lying position at the le harshad foramen magnum Post contrast images demonstrate no abnormal enhancement. The dural venous sinuses appear patent. Mild changes of chronic sinusitis and the globes are intact. IMPRESSION: 1. Mild chronic sinusitis. 2. Low-lying cerebellar tonsils the level just below the foramen magnum. No tonsillar beaking. Chiari I malformation not excluded.
== END | disposition home or self-care (01) ==
LOC: RADMRIMAIN 07:40
PROVIDERS: ATTEND Family Medicine
DX: J32.9 Chronic sinusitis, unspecified (principal)
CPT/HCPCS: 70553; A9585

== ENCOUNTER → 2022-01-23 | Outpatient (CLI) | payer OTHER ==
--- NOTE | 2022-01-23 09:36 | US ---
EXAMINATION TYPE: US abdomen complete DATE OF EXAM: 01/23/2022 COMPARISON: NONE CLINICAL HISTORY: R10.9 UNSPECIFIED ABDOMINAL PAIN. mid abdominal pain, cholecystectomy, large habitu s EXAM MEASUREMENTS: Liver Length: 15.5 cm Gallbladder Wall: Surgically absent CBD: 0.4 cm Spleen: 13.1 cm Right Kidney: 11.7 x 5.1 x 5.0 cm Left Kidney: 11.5 x 3.9 x 5.9 cm Pancreas: limited views appeared wnl Liver: difficult to penetrate Gallbladder: Surgically absent Evidence for sonographic Mckeon's sign: no CBD: wnl Spleen: wnl Right Kidney: wnl Left Kidney: wnl Upper IVC: wnl Abd Aorta: wnl The intrahepatic portion of the IVC and proximal abdominal aorta are within normal limits. Common bi le duct is unremarkable. The visualized portions of the pancreas are homogenous. The spleen is unre markable. Kidneys are symmetric and free of hydronephrosis. No renal lesions are seen. IMPRESSION: Hepatic steatosis.
== END ==
LOC: RADUSWWP 07:53
PROVIDERS: ATTEND Family Medicine
DX: K76.0 Fatty (change of) liver, not elsewhere classified (principal)
CPT/HCPCS: 76700

== ENCOUNTER → 2022-05-31 | Outpatient (CLI) | payer OTHER ==
--- NOTE | 2022-05-31 10:07 | US ---
EXAMINATION TYPE: US thyroid st tissue head/neck DATE OF EXAM: 05/31/2022 COMPARISON: NONE CLINICAL HISTORY: M54.2 CERVICALGIA. pressure on throat GLAND SIZE: Right Lobe: 4.5 x 1.5 x 1.4 cm Overall Parenchyma: homogenous Left Lobe: 4.6 x 1.1 x 1.8cm Overall Parenchyma: homogeneous Isthmus Thickness: 0.5 cm NODULES RIGHT: # of nodules measured on right: 1 1. 0.8 x 0.7 x 0.4cm, mid, solid or almost completely solid, hypoechoic nodule, which is wider than tall, with smooth margins, without echogenic foci. Prior size: DIGITAL COURT REPORTER LEFT: # of nodules measured on left: 1 1. 4.6 X 1.1 x 1.8 cm, lower, mixed cystic and solid, hypoechoic nodule, which is wider than tall, with smooth margins, without echogenic foci. Prior size: DIGITAL COURT REPORTER ISTHMUS: # of nodules measured in the isthmus: 0 Bilateral neck scanned, no evidence of lymphadenopathy. IMPRESSION: Nonspecific thyroid nodularity.
--- NOTE | 2022-05-31 11:21 | XR ---
EXAMINATION TYPE: XR chest 2V DATE OF EXAM: 05/31/2022 COMPARISON: Chest x-ray 11/21/2020 HISTORY: Chest pain TECHNIQUE: Frontal and lateral views of the chest are obtained. FINDINGS: There is no focal air space opacity, pleural effusion, or pneumothorax seen. The cardiac silhouette size is within normal limits. The osseous structures are intact. IMPRESSION: No acute cardiopulmonary process.
== END | disposition home or self-care (01) ==
LOC: RADUSWWP 09:15
PROVIDERS: ATTEND Family Medicine
DX: M54.2 Cervicalgia (principal); R07.89 Other chest pain
CPT/HCPCS: 71046; 76536

== ENCOUNTER → 2022-07-02 | Outpatient (CLI) | payer OTHER ==
--- NOTE | 2022-07-03 09:37 | CA ---
Transthoracic Echo Report Name: Alissa Aguilera Age: 37 Gender: F : 1985 Exam Date: 07/02/2022 14:14 Exam Location: [facility] Ht (in): 62 Wt (lb): 285 Ordering Physician: Quinn Quan DO Attending/Referring Phys: Quinn Quan DO Support Specialist Elle Urias RDCS Procedure CPT: Indications: R07.89 other chest pain Cardiac Hx: Technical Quality: Fair Contrast 1: N/A Total Dose (mL): Contrast 2: Total Dose (mL): MEASUREMENTS (Male / Female) Normal Values 2D ECHO LV Diastolic Diameter PLAX 5.2 cm 4.2 - 5.9 / 3.9 - 5.3 cm LV Systolic Diameter PLAX 4.2 cm IVS Diastolic Thickness 1.0 cm 0.6 - 1.0 / 0.6 - 0.9 cm LVPW Diastolic Thickness 1.3 cm 0.6 - 1.0 / 0.6 - 0.9 cm LV Relative Wall Thickness 0.4 RV Internal Dim ED PLAX 2.4 cm LA Systolic Diameter LX 3.8 cm 3.0 - 4.0 / 2.7 - 3.8 cm LA Volume 53.4 cm??? 18 - 58 / 22 - 52 cm??? M-MODE Aortic Root Diameter MM 2.8 cm LA Systolic Diameter MM 4.1 cm LA Ao Ratio MM 1.5 MV E Point Septal Separation 0.5 cm AV Cusp Separation MM 1.9 cm DOPPLER MV E' Velocity 5.4 cm/s TR Peak Velocity 203.4 cm/s TR Peak Gradient 16.5 mmHg Right Ventricular Systolic Press 21.5 mmHg FINDINGS Left Ventricle Mildly increased septal wall thickness. Moderately increased posterior wall thickness. Left ventricular ejection fraction is estimated at 55%. Left ventricular cavity size normal. Right Ventricle Normal right ventricular size and function. Right ventricular systolic pressure within normal limits. Right Atrium Normal right atrial size. Left Atrium Mildly increased left atrial volume. Mitral Valve Structurally normal mitral valve. Mild mitral regurgitation. Aortic Valve Trileaflet aortic valve. Tricuspid Valve Structurally normal tricuspid valve. Mild tricuspid regurgitation. Pulmonic Valve Pulmonic valve not well visualized. Pericardium Echo free space anterior to the right ventricle likely represents a fat pad. Aorta Normal size aortic root and proximal ascending aorta. CONCLUSIONS Normal LV size and systolic function with concentric LVH. Mild mitral and tricuspid regurgitation. Small echo free space anteriorly may represent a fat pad. No clearcut pericardial effusion Previewed by: Dr. Mina Duran MD (Electronically Signed) Final Date: 03 July 2022 09:36
== END | disposition home or self-care (01) ==
LOC: RADECHMAIN 13:42
PROVIDERS: ATTEND Family Medicine
DX: I08.1 Rheumatic disorders of both mitral and tricuspid valves (principal)
CPT/HCPCS: 93306

== ENCOUNTER 2023-07-10 18:16 | Emergency (ER) | payer BC, OTHER ==
--- NOTE | 2023-07-10 18:34 | ED ---
General Adult HPI <Jose Mcghee - Last Filed: 07/10/23 18:34> - History of Present Illness -: days(s) Radiation: neck Severity scale (1-10): 7 Quality: sharp Consistency: intermittent Improves with: none Worsens with: none Associated Symptoms: chest pain, weakness Treatments Prior to Arrival: none <Juancarlos Patel - Last Filed: 07/16/23 23:15> - General Stated complaint: back pain Time Seen by Provider: 07/10/23 18:32 - History of Present Illness Initial comments: 38-year-old female presenting to the ED with a chief complaint of back pain. Patient states pain across her upper back. Denies any injury. Patient states ongoing for the last week and a half. States she saw her PCP who reported that it was likely muscular. Additionally, patient states over the past few days has had a pressure in the middle of her chest. (Jose Mcghee) This is a 38-year-old female to the emergency department for evaluation of back pain back pain thoracic pain up into her neck. Chest pain with no shortness of breath no travel show sick contacts no fevers, chest pain and pressure as well as back pain and spinal pain (Juancarlos Patel) - Related Data Previous Rx's Medication Instructions Recorded Ferrous Sulfate [Iron] 325 mg PO DAILY #30 tablet 11/22/20 Nitrofurantoin Monohyd/M-Cryst 100 mg PO Q12HR #6 cap 11/22/20 [Macrobid] Ibuprofen [Motrin] 800 mg PO Q6HR #30 tab 11/18/21 Allergies Allergy/AdvReac Type Severity Reaction Status Date / Time No Known Allergies Allergy Verified 11/18/21 19:51 Review of Systems ROS Other: All systems not noted in ROS Statement are negative. <Jose Mcghee - Last Filed: 07/10/23 18:34> ROS Other: All systems not noted in ROS Statement are negative. <Juancarlos Patel - Last Filed: 07/16/23 23:15> ROS Statement: Those systems with pertinent positive or pertinent negative responses have been documented in the HPI. Past Medical History Additional Past Medical History / Comment(s): fibroids History of Any Multi-Drug Resistant Organisms: None Reported Past Surgical History: Cholecystectomy Additional Past Surgical History / Comment(s): cone biospy Past Anesthesia/Blood Transfusion Reactions: No Reported Reaction Past Psychological History: Anxiety, Bipolar, Depression Smoking Status: Never smoker Past Alcohol Use History: Rare Past Drug Use History: None Reported - Past Family History Mother Family Medical History: Cancer, Diabetes Mellitus, Hyperlipidemia, Hypertension Additional Family Medical History / Comment(s): mom has cervical cancer <Jose Mcghee - Last Filed: 07/10/23 18:34> General Exam General appearance: alert Neck exam: Present: normal inspection Extremities exam: Present: normal inspection Back exam: Present: normal inspection Neurological exam: Present: alert <Jose Mcghee - Last Filed: 07/10/23 18:34> General appearance: alert, in no apparent distress Head exam: Present: atraumatic, normocephalic, normal inspection Eye exam: Present: normal appearance, PERRL, EOMI. Absent: scleral icterus, conjunctival injection, periorbital swelling ENT exam: Present: normal exam, mucous membranes moist Neck exam: Present: normal inspection. Absent: tenderness, meningismus, lymphadenopathy Respiratory exam: Present: normal lung sounds bilaterally. Absent: respiratory distress, wheezes, rales, rhonchi, stridor Cardiovascular Exam: Present: regular rate, normal rhythm, normal heart sounds. Absent: systolic murmur, diastolic murmur, rubs, gallop, clicks GI/Abdominal exam: Present: soft, normal bowel sounds. Absent: distended, tenderness, guarding, rebound, rigid Extremities exam: Present: normal inspection, full ROM, normal capillary refill. Absent: tenderness, pedal edema, joint swelling, calf tenderness Back exam: Present: normal inspection Neurological exam: Present: alert, oriented X3, CN II-XII intact Psychiatric exam: Present: normal affect, normal mood Skin exam: Present: warm, dry, intact, normal color. Absent: rash <Juancarlos Patel - Last Filed: 07/16/23 23:15> Course <Juancarlos Patel - Last Filed: 07/16/23 23:15> Vital Signs 07/10/23 07/11/23 18:31 00:02 Temperature 98 F Pulse Rate 75 55 L Respiratory 20 17 Rate Blood Pressure 163/100 121/76 O2 Sat by Pulse 98 100 Oximetry - Reevaluation(s) Reevaluation #1: Medical record is reviewed (Juancarlos Patel) Reevaluation #2: Patient symptoms are improved (Juancarlos Patel) Reevaluation #3: Patient informed results questions answered (Juancarlos Patel) Reevaluation #4: Was pt. sent in by a medical professional or institution (, LISA, STREET CLEANING EQUIPMENT OPERATOR, urgent care, hospital, or care home...) When possible be specific @ -no Did you speak to anyone other than the patient for history (EMS, parent, family, police, friend...)? What history was obtained from this source @ -no Did you review nursing and triage notes (agree or disagree)? Why? @ -agree Are old charts reviewed (outside hosp., previous admission, EMS record, old EKG, old radiological studies, urgent care reports/EKG's, care home records)? Report findings @ -yes Differential Diagnosis (chest pain, altered mental status, abdominal pain women, abdominal pain men, vaginal bleeding, weakness, fever, dyspnea, syncope, headache, dizziness, GI bleed, back pain, seizure, CVA, palpatations, mental health, musculoskeletal)? @ -prior EKG interpreted by me (3pts min.). @ -yes X-rays interpreted by me (1pt min.). @ -yes negative for acute disease CT interpreted by me (1pt min.). @ -yes negative for acute disease U/S interpreted by me (1pt. min.). @ -no What testing was considered but not performed or refused? (CT, X-rays, U/S, labs)? Why? @ -none What meds were considered but not given or refused? Why? @ -none Did you discuss the management of the patient with other professionals (professionals i.e. , LISA, STREET CLEANING EQUIPMENT OPERATOR, lab, RT, psych nurse, social human services assistants, chief controller, teacher, collection officer, caser up)? Give summary @ -no Was smoking cessation discussed for >3mins.? @ -no Was critical care preformed (if so, how long)? @ -no Were there social determinants of health that impacted care today? How? (Homelessness, low income, unemployed, alcoholism, drug addiction, transportation, low edu. Level, literacy, decrease access to med. care, snf, rehab)? @ -none Was there de-escalation of care discussed even if they declined (Discuss DNR or withdrawal of care, Hospice)? DNR status @ -no What co-morbidities impacted this encounter? (DM, HTN, Smoking, COPD, CAD, C ancer, CVA, ARF, Chemo, Hep., AIDS, mental health diagnosis, sleep apnea, morbid obesity)? @ -none Was patient admitted / discharged? Hospital course, mention meds given and route, prescriptions, significant lab abnormalities, going to OR and other pertinent info. @ - 38 female to the emergency department for evaluation chest pain back pain and thoracic spine pain. Patient is no acute findings here in the ER and can be discharged home Discharge Undiagnosed new problem with uncertain prognosis? @ -no Drug Therapy requiring intensive monitoring for toxicity (Heparin, Nitro, Insulin, Cardizem)? @ -no Were any procedures done? @ -no Diagnosis/symptom? @ -Chest pain back pain Acute, or Chronic, or Acute on Chronic? @ -Acute Uncomplicated (without systemic symptoms) or Complicated (systemic symptoms)? @ -Complicated Side effects of treatment? @ -no Exacerbation, Progression, or Severe Exacerbation? @ -exacerbation Poses a threat to life or bodily function? How? (Chest pain, [place], [place], pneumonia, PE, COPD, DKA, ARF, appy, cholecystitis, CVA, Diverticulitis, Homicidal, Suicidal, threat to staff... and all critical care pts) @ -no (Juancarlos Patel) EKG Findings - EKG Comments: EKG Findings:: EKG is sinus rhythm 66 WI 168 QRS 108 QTc 412 <Juancarlos Patel - Last Filed: 07/16/23 23:15> Medical Decision Making <Jose Mcghee - Last Filed: 07/10/23 18:34> - Lab Data Result diagrams: 07/10/23 18:46 07/10/23 18:46 - Radiology Data Radiology results: report reviewed (Chest x-ray and CT of the thoracic spine is negative for acute disease), image reviewed <Juancarlos Patel - Last Filed: 07/16/23 23:15> - Medical Decision Making Quicknote portion perforned. Signed Joes Mcghee PA-C (Jose Mcghee) 38 female to the emergency department for evaluation chest pain back pain and thoracic spine pain. Patient is no acute findings here in the ER and can be discharged home (Juancarlos Patel) - Lab Data Lab Results 07/10/23 07/10/23 07/10/23 Range/Units 18:36 18:46 18:46 WBC 7.3 (3.8-10.6) k/uL RBC 5.08 (3.80-5.40) m/uL Hgb 12.8 (11.4-16.0) gm/dL Hct 38.1 (34.0-46.0) % MCV 75.0 L (80.0-100.0) fL MCH 25.2 (25.0-35.0) pg MCHC 33.6 (31.0-37.0) g/dL RDW 15.6 H (11.5-15.5) % Plt Count 196 (150-450) k/uL MPV 11.1 Neutrophils % 72 % Lymphocytes % 21 % Monocytes % 3 % Eosinophils % 3 % Basophils % 0 % Neutrophils # 5.2 (1.3-7.7) k/uL Lymphocytes # 1.5 (1.0-4.8) k/uL Monocytes # 0.3 (0-1.0) k/uL Eosinophils # 0.2 (0-0.7) k/uL Basophils # 0.0 (0-0.2) k/uL Microcytosis Slight PT 10.6 (10.0-12.5) sec INR 1.0 (<1.2) APTT 25.2 (22.0-30.0) sec Sodium (137-145) mmol/L Potassium (3.5-5.1) mmol/L Chloride (98-107) mmol/L Carbon Dioxide (22-30) mmol/L Anion Gap mmol/L BUN (7-17) mg/dL Creatinine (0.52-1.04) mg/dL Est GFR (CKD-EPI)AfAm (>60 ml/min/1.73 sqM) Est GFR (CKD-EPI)NonAf (>60 ml/min/1.73 sqM) Glucose (74-99) mg/dL Calcium (8.4-10.2) mg/dL Magnesium (1.6-2.3) mg/dL Total Bilirubin (0.2-1.3) mg/dL AST (14-36) U/L ALT (4-34) U/L Alkaline Phosphatase (38-126) U/L Troponin I (0.000-0.034) ng/mL Total Protein (6.3-8.2) g/dL Albumin (3.5-5.0) g/dL TSH (0.465-4.680) mIU/L Urine Color Light Yellow Urine Appearance Slightly Cloudy H (Clear) Urine pH 6.5 (5.0-8.0) Ur Specific [place] 1.025 (1.001-1.035) Urine Protein Negative (Negative) Urine Glucose (UA) Negative (Negative) Urine Ketones Trace (Negative) Urine Blood Negative (Negative) Urine Nitrite Negative (Negative) Urine Bilirubin Negative (Negative) Urine Urobilinogen <2.0 (<2.0) mg/dL Ur Leukocyte Esterase Negative (Negative) Urine RBC 1 (0-5) /hpf Urine WBC 2 (0-5) /hpf Ur Squamous Epith Cells 13 H (0-4) /hpf Hyaline Casts 1 (0-2) /lpf Urine Mucus Few H (None) /hpf 07/10/23 07/10/23 07/10/23 Range/Units 18:46 18:46 18:46 WBC (3.8-10.6) k/uL RBC (3.80-5.40) m/uL Hgb (11.4-16.0) gm/dL Hct (34.0-46.0) % MCV (80.0-100.0) fL MCH (25.0-35.0) pg MCHC (31.0-37.0) g/dL RDW (11.5-15.5) % Plt Count (150-450) k/uL MPV Neutrophils % % Lymphocytes % % Monocytes % % Eosinophils % % Basophils % % Neutrophils # (1.3-7.7) k/uL Lymphocytes # (1.0-4.8) k/uL Monocytes # (0-1.0) k/uL Eosinophils # (0-0.7) k/uL Basophils # (0-0.2) k/uL Microcytosis PT (10.0-12.5) sec INR (<1.2) APTT (22.0-30.0) sec Sodium 138 (137-145) mmol/L Potassium 3.9 (3.5-5.1) mmol/L Chloride 102 (98-107) mmol/L Carbon Dioxide 25 (22-30) mmol/L Anion Gap 11 mmol/L BUN 19 H (7-17) mg/dL Creatinine 0.66 (0.52-1.04) mg/dL Est GFR (CKD-EPI)AfAm >90 (>60 ml/min/1.73 sqM) Est GFR (CKD-EPI)NonAf >90 (>60 ml/min/1.73 sqM) Glucose 102 H (74-99) mg/dL Calcium 9.6 (8.4-10.2) mg/dL Magnesium 2.0 (1.6-2.3) mg/dL Total Bilirubin 0.7 (0.2-1.3) mg/dL AST 23 (14-36) U/L ALT 20 (4-34) U/L Alkaline Phosphatase 73 (38-126) U/L Troponin I <0.012 (0.000-0.034) ng/mL Total Protein 8.0 (6.3-8.2) g/dL Albumin 4.5 (3.5-5.0) g/dL TSH 1.170 (0.465-4.680) mIU/L Urine Color Urine Appearance (Clear) Urine pH (5.0-8.0) Ur Specific [place] (1.001-1.035) Urine Protein (Negative) Urine Glucose (UA) (Negative) Urine Ketones (Negative) Urine Blood (Negative) Urine Nitrite (Negative) Urine Bilirubin (Negative) Urine Urobilinogen (<2.0) mg/dL Ur Leukocyte Esterase (Negative) Urine RBC (0-5) /hpf Urine WBC (0-5) /hpf Ur Squamous Epith Cells (0-4) /hpf Hyaline Casts (0-2) /lpf Urine Mucus (None) /hpf Disposition <Jose Mcghee - Last Filed: 07/10/23 18:34> Is patient prescribed a controlled substance at d/c from ED?: No Time of Disposition: 23:35 <Juancarlos Patel - Last Filed: 07/16/23 23:15> Clinical Impression: Back pain, Chest pain, Atypical chest pain Disposition: HOME SELF-CARE Condition: Good Instructions (If sedation given, give patient instructions): Chest Pain (ED), Back Pain (ED) Referrals: Quinn Quan DO [Primary Care Provider] - 1-2 days
[2023-07-10 18:47] VITALS: TEMP 98
[2023-07-10 18:57] LABS: Basophils % (A) 0 %; Eosinophils # (A) 0.2 k/uL (0-0.7); Eosinophils % (A) 3 %; HCT 38.1 % (34.0-46.0); HGB 12.8 gm/dL (11.4-16.0); Lymphocytes # (A) 1.5 k/uL (1.0-4.8); Lymphocytes % (A) 21 %; MCH 25.2 pg (25.0-35.0); MCHC 33.6 g/dL (31.0-37.0); Mean Platelet Volume 11.1; Microcytosis Slight; Monocytes # (A) 0.3 k/uL (0-1.0); Monocytes % (A) 3 %; Neutrophils # (A) 5.2 k/uL (1.3-7.7); Neutrophils % (A) 72 %; Platelet Count 196 k/uL (150-450); RBC 5.08 m/uL (3.80-5.40); RDW 15.6 % (11.5-15.5); WBC 7.3 k/uL (3.8-10.6)
[2023-07-10 19:09] LABS: ALT 20 U/L (4-34); AST 23 U/L (14-36); African American GFR (CKD) >90 (>60 ml/min/1.73 sqM); Albumin 4.5 g/dL (3.5-5.0); Alkaline Phosphatase 73 U/L (38-126); Anion Gap 11 mmol/L; Blood Urea Nitrogen 19 mg/dL (7-17); Calcium 9.6 mg/dL (8.4-10.2); Carbon Dioxide 25 mmol/L (22-30); Chloride 102 mmol/L (98-107); Glucose 102 mg/dL (74-99); Non-African American GFR(CKD) >90 (>60 ml/min/1.73 sqM); Potassium 3.9 mmol/L (3.5-5.1); Sodium 138 mmol/L (137-145); Total Bilirubin 0.7 mg/dL (0.2-1.3)
[2023-07-10 19:14] LABS: Partial Thromboplastin Time 25.2 sec (22.0-30.0); Prothrombin Time 10.6 sec (10.0-12.5)
--- NOTE | 2023-07-10 19:36 | XR ---
EXAMINATION: XR chest 2V: 07/10/2023 7:12 PM CLINICAL INDICATION: chest pain TECHNIQUE: Departmental protocol COMPARISON: 05/31/2022 FINDINGS: The lungs are clear. The pleural spaces are negative. The cardiac silhouette is not enlarged. The remainder of the mediastinal silhouette is unremarkable. The skeletal structures and soft tissues are negative for acute findings. IMPRESSION: No acute radiographic process.
[2023-07-10 20:15] LABS: Hyaline Casts,Urine 1 /lpf (0-2); Mucus,Urine Few /hpf; RBC,Urine 1 /hpf (0-5); Squamous Epithelial Cell,Urine 13 /hpf (0-4); WBC,Urine 2 /hpf (0-5)
[2023-07-10 20:17] LABS: Color,Urine Light Yellow
[2023-07-10 20:18] LABS: Appearance,Urine Slightly Cloudy (Clear); Bilirubin,Urine Negative (Negative); Blood,Urine Negative (Negative); Glucose,Urine (UA) Negative (Negative); Ketones,Urine Trace (Negative); Nitrite,Urine Negative (Negative); PH, Urine 6.5 (5.0-8.0); Protein,Urine Negative (Negative); Specific Gravity,Urine 1.025 (1.001-1.035); Urobilinogen,Urine <2.0 mg/dL (<2.0)
[2023-07-10 20:19] LABS: Leukocyte Esterase,Urine Negative (Negative)
[2023-07-10] MEDS ORDERED: ETODOLAC 400 MG TAB PO STA (22:14)
[2023-07-10] MEDS ORDERED: traMADol 50 MG TAB PO STA (22:14)
--- NOTE | 2023-07-10 23:27 | CT ---
EXAM: CT Thoracic Spine Without Intravenous Contrast CLINICAL HISTORY: ITS.REASON CT Reason: pain TECHNIQUE: Axial computed tomography images of the thoracic spine without intravenous contrast. CTDI is 36.1 mGy and DLP is 1946.8 mGy-cm. This CT exam was performed using one or more of the following dose reduction techniques: automated exposure control, adjustment of the mA and/or kV according to patient size, and/or use of iterative reconstruction technique. COMPARISON: No relevant prior studies available. FINDINGS: The vertebral body heights are maintained. The thoracic kyphosis is preserved. There is no spondylolisthesis. The posterior elements are maintained, without evidence of acute fracture. The pedicles are intact. Expansile, lytic lesion in the posterior fourth rib measures 2.1 x 1.4 cm. Bone scan recommended for further evaluation. Multilevel thoracic spondylosis and degenerative disc disease. IMPRESSION: No acute fracture or subluxation of the thoracic spine. Expansile, lytic lesion in the posterior fourth rib measures 2.1 x 1.4 cm. Bone scan recommended for further evaluation.
[2023-07-11 00:27] VITALS: BP 121/76; PULSE 55; RESP 17
== END 2023-07-11 00:14 | disposition home or self-care (01) ==
LOC: EC 18:16
DX: R07.89 Other chest pain (principal); M54.9 Dorsalgia, unspecified; Z86.59 Personal history of other mental and behavioral disorders
CPT/HCPCS: 36415; 71046; 72128; 80053; 81001; 83735; 84443; 84484; 85025; 85610; 85730; 93005; 99284

== ENCOUNTER → 2024-02-13 | Outpatient (CLI) | payer BC ==
--- NOTE | 2024-02-15 11:54 | CT ---
EXAMINATION TYPE: CT abdomen pelvis w con DATE OF EXAM: 02/13/2024 COMPARISON: None HISTORY: abdominal pain and constipation. CT DLP: 2037 mGycm CONTRAST: CT scan of the abdomen and pelvis is performed with Oral Contrast and with IV Contrast, patient injec anand with 100ml mL of Isovue 300. FINDINGS: LUNG BASES-: No visible nodule. No infiltrate. LIVER/GB: The gallbladder is surgically absent. No space occupying hepatic lesion. Biliary tree is of normal caliber. PANCREAS: No inflammation. No distinct mass. SPLEEN: No splenic enlargement. No lesion seen. ADRENALS: No nodule. No thickening. KIDNEYS/BLADDER: No hydronephrosis. No nephrolithiasis. No distinct renal mass. Urinary bladder g rossly unremarkable. BOWEL: Nonvisualization of the appendix. Normal bowel caliber. No inflammation. GENITAL ORGANS: Hysterectomy changes. LYMPH NODES: No greater than 1cm abdominal or pelvic lymph nodes are appreciated. AORTA: No significant abnormality. OSSEOUS STRUCTURES: No significant abnormality is seen. OTHER: No significant additional abnormality is seen. IMPRESSION: 1. No acute process seen.
== END | disposition home or self-care (01) ==
LOC: RADCTMAIN 07:35
PROVIDERS: ATTEND Family Medicine
DX: R10.31 Right lower quadrant pain (principal)
CPT/HCPCS: 74177; Q9967

== ENCOUNTER → 2024-02-19 | Outpatient (CLI) | payer BC ==
--- NOTE | 2024-02-19 18:57 | XR ---
EXAMINATION TYPE: XR thoracic spine 3V DATE OF EXAM: 02/19/2024 COMPARISON: NONE HISTORY: 38-year-old female M54.6, thoracic spine pain TECHNIQUE: 3 views FINDINGS: 12 rib bearing thoracic vertebral bodies. Cholecystectomy clips. All pedicles are visualize d. Mild degenerative disc disease mid thoracic spine. Vertebral body heights are preserved and alignm ent is maintained. IMPRESSION: Mild degenerative disc disease midthoracic spine. No vertebral compression collapse or malalignment.
== END | disposition home or self-care (01) ==
LOC: RADXRMAIN 09:05
PROVIDERS: ATTEND Family Medicine
DX: M51.34 Other intervertebral disc degeneration, thoracic region (principal)
CPT/HCPCS: 72070

== ENCOUNTER 2024-04-23 12:41 | Day surgery (SDC) | payer BC ==
[2024-04-21 16:24] VITALS: BMI 46.6
[2024-04-23 13:04] VITALS: TEMP 97
[2024-04-23] MEDS: LACTATED RINGERS 1,000 ML IV SCH (13:09)
[2024-04-23] MEDS: IV FLUID CONTINUATION 1,000 ML IV ONE (13:10)
[2024-04-23] MEDS ORDERED: PROPOFOL 10 MG/ML 20 ML VIAL IV ONE (14:31)
--- NOTE | 2024-04-23 14:56 | P.PCN ---
Date of Procedure: 04/23/24 Procedure(s) Performed: BRIEF HISTORY: Patient is a 39-year-old pleasant white female scheduled for an elective colonoscopy as a part of change in bowel habits and intermittent rectal bleeding for the last few months duration PROCEDURE PERFORMED: Colonoscopy with snare polypectomy.. PREOPERATIVE DIAGNOSIS: Change in bowel habits and intermittent rectal bleeding. IV sedation per Anesthesia. PROCEDURE: After informed consent was obtained, the patient, was brought into the endoscopy unit. IV sedation was administered by Anesthesia under continuous monitoring. Digital rectal examination was normal. Initially the Olympus CF-160 flexible video colonoscope was then inserted in the rectum, gradually advanced into the cecum without any difficulty. Careful examination was performed as the scope was gradually being withdrawn. Ileocecal valve and the appendiceal orifice were visualized and appeared normal. Prep was excellent. Mucosa of the cecum, ascending colon, transverse colon, descending colon, sigmoid colon, and rectum appeared normal. Retroflexion was performed in the rectum and there was a 1 cm polyp noted just proximal to the dentate line this was removed by snare polypectomy. Positive small internal hemorrhoids seen. The patient tolerated the procedure well. IMPRESSION: 1 cm distal rectal polyp just proximal to the dentate line s/p snare polypectomy Small internal RECOMMENDATIONS: Findings of this examination were discussed with the patient as well as her family. Follow-up with the biopsy results. She was advised to be on high-fiber diet and take fiber supplements on a regular basis and use MiraLAX as needed.. Follow-up in the office in 2 to 3 weeks.
[2024-04-23 15:26] VITALS: BP 110/71; PULSE 86; RESP 16
== END 2024-04-23 15:53 | disposition home or self-care (01) ==
LOC: ORWHC2ENDO 12:41
PROVIDERS: ATTEND Internal Medicine Gastroenterology
DX: K59.09 Other constipation
CPT/HCPCS: 45385

== ENCOUNTER → 2024-05-11 | Outpatient (CLI) | payer BC ==
[2024-05-12 04:09] LABS: Appearance,Urine Cloudy (Clear); Bilirubin,Urine Negative (Negative); Blood,Urine Negative (Negative); Color,Urine Yellow (Yellow); Ketones,Urine Trace (Negative); Nitrite,Urine Negative (Negative); PH, Urine 5.5; Specific Gravity,Urine 1.031 (1.001-1.030)
[2024-05-12 04:39] LABS: Bacteria,Urine 1+ (None Seen); Calcium Oxalate Crystals,Urine Present (None Seen)
== END | disposition home or self-care (01) ==
LOC: LABWHC1 16:28
PROVIDERS: ATTEND Radiology Radiation Oncology
DX: C21.1 Malignant neoplasm of anal canal (principal)
CPT/HCPCS: 81001; 87086

== ENCOUNTER → 2024-05-28 | Outpatient (CLI) | payer BC ==
--- NOTE | 2024-05-28 17:01 | PE ---
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 Images are reviewed on the computer in the coronal, axial, and sagittal planes. Reconstructed rotating images are created on independent workstation and reviewed on the computer. A non-contrast CT is performed in conjunction with the PET scan. Glucose level 92 mg/dL CT DLP: 1099.35 mGycm, Automated exposure control for dose reduction was used. COMPARISON: CT 02/13/2024, PET/CT None, MRI: None FINDINGS: Mediastinal SUV mean is 2.4. Hepatic parenchyma SUV mean is 3.1. SKULL BASE AND NECK: No suspicious radiotracer activity. CHEST, MEDIASTINUM, AND HILAR REGION: No suspicious radiotracer activity. ABDOMEN AND PELVIS: FDG activity within the renal region with a maximal SUV of 8.9 likely related to known cancer. There are 2 enlarged adjacent right perirectal lymph nodes identified with largest measuring [address] able size from prior exam. Demonstrates a maximum SUV of 9.4. MUSCULOSKELETAL STRUCTURES: No suspicious radiotracer activity. OTHER CT: Right-sided sublingual sialolith measuring up to 6 mm with some surrounding FDG activity mo st consistent with inflammation. Mildly enlarged heart. Gallbladder is surgically absent. Pelvic phle boliths. Uterus appears surgically absent. IMPRESSION: Focal FDG radiotracer activity within the anal region likely related to known cancer. Additional 2 en larged right perirectal lymph nodes redemonstrated with focal FDG activity consistent with metastasis . No other suspicious FDG activity to suggest metastasis. [facility], , 05/28/2024 4:59 PM
== END | disposition home or self-care (01) ==
LOC: RADPETMAIN 07:01
PROVIDERS: ATTEND Internal Medicine Hematology & Oncology
CPT/HCPCS: 78815

== ENCOUNTER → 2024-06-22 | Outpatient (CLI) | payer BC ==
[2024-06-22 15:18] LABS: Appearance,Urine Clear (Clear); Bilirubin,Urine Negative (Negative); Blood,Urine Negative (Negative); Color,Urine Yellow (Yellow); Ketones,Urine Negative (Negative); Nitrite,Urine Negative (Negative); PH, Urine 5.5; Specific Gravity,Urine 1.025 (1.001-1.030); Urobilinogen,Urine 0.2 E.U./DL
== END | disposition home or self-care (01) ==
LOC: LABWHC1 09:44
PROVIDERS: ATTEND Radiology Radiation Oncology
DX: C21.1 Malignant neoplasm of anal canal (principal)
CPT/HCPCS: 81003; 87086

== ENCOUNTER 2024-10-08 11:28 | Day surgery (SDC) | payer BC ==
[2024-10-06 15:32] VITALS: BMI 47.5
[2024-10-08 11:50] VITALS: TEMP 97.4
[2024-10-08] MEDS: IV FLUID CONTINUATION 1,000 ML IV ONE (11:52)
[2024-10-08] MEDS: LACTATED RINGERS 1,000 ML IV SCH (11:59)
[2024-10-08] MEDS ORDERED: PROPOFOL 10 MG/ML 20 ML VIAL IV ONE (12:55)
--- NOTE | 2024-10-08 13:10 | P.PCN ---
Date of Procedure: 10/08/24 Procedure(s) Performed: BRIEF HISTORY: Patient is a 39-year-old pleasant white female scheduled for an elective sigmoidoscopy as a part of evaluation of intermittent rectal bleeding for the last 2 months duration. She was diagnosed with anorectal squamous cell carcinoma of 2023 for which she underwent chemo and radiation that ended in July of last year. Lately has been having rectal pain and rectal bleeding and has scheduled for a sigmoidoscopy to evaluate further. PROCEDURE PERFORMED: Flexible sigmoidoscopy PREOPERATIVE DIAGNOSIS: Rectal pain/rectal bleeding and history of squamous cell anal rectal cancer diagnosed in 04/2024. IV sedation per Anesthesia. PROCEDURE: After informed consent was obtained, the patient, was brought into the endoscopy unit. IV sedation was administered by Anesthesia under continuous monitoring. Digital rectal examination revealed superficial anal fissure and a small skin tag. Initially the Olympus CF-160 flexible video colonoscope was then inserted in the rectum, gradually advanced into the descending colon without any difficulty. Careful examination was performed as the scope was gradually being withdrawn. Mucosa of the descending colon, sigmoid colon, and rectum appeared normal. Retroflexion was performed in the rectum and no lesions were seen. The patient tolerated the procedure well. IMPRESSION: Superficial anal fissure with skin tag No other anal lesions identified. Normal-appearing colon from rectum to splenic flexure with no evidence of colorectal neoplasia. RECOMMENDATIONS: Findings of this examination were discussed with the patient as well as her family. She was advised to be on a high-fiber diet and take fiber supplements on a regular basis. Use MiraLAX as needed. She will be given a prescription for topical steroid suppositories for 2 weeks..
[2024-10-08 13:40] VITALS: BP 110/62; PULSE 63; RESP 18
== END 2024-10-08 14:10 ==
LOC: ORWHC2ENDO 11:28
PROVIDERS: ATTEND Internal Medicine Gastroenterology
DX: K60.2 Anal fissure, unspecified (principal); K64.4 Residual hemorrhoidal skin tags; Z85.048 Personal history of other malignant neoplasm of rectum, rectosigmoid junction, and anus; I10 Essential (primary) hypertension; F31.9 Bipolar disorder, unspecified; F41.9 Anxiety disorder, unspecified; Z79.899 Other long term (current) drug therapy; Z98.890 Other specified postprocedural states
CPT/HCPCS: 45330; J2704

== ENCOUNTER → 2024-12-09 | Outpatient (CLI) | payer BC ==
--- NOTE | 2024-12-10 08:24 | PE ---
EXAMINATION TYPE: PET CT fusion skull to thigh DATE OF EXAM: 12/09/2024 COMPARISON: Prior PET/CT September 09, 2024 and older studies. HISTORY: Carcinoma of anus . Completed chemotherapy and radiation treatment July 13, 2024 TECHNIQUE: Following the intravenous administration of 12.52 mCi of F-18 FDG, whole body images are performed from the skull base to the midthigh. Images are reviewed on the computer in the coronal, a xial, and sagittal planes. Reconstructed rotating images are created on independent workstation and reviewed on the computer. A localization and attenuation correction CT is performed in conjunction with the PET scan. Blood glucose level equals 94. SCAN: Subsequent Scan FINDINGS: SKULL BASE AND NECK: No new area of abnormal hypermetabolic uptake. CHEST, MEDIASTINUM, AND HILAR REGION: No new areas of abnormal hypermetabolic uptake. ABDOMEN AND PELVIS: Normal excretion is redemonstrated. Fairly stable nonspecific hypermetabolic upta ke in the region of the anus, max SUV is 6.98 versus 6.2 on prior. No new enlarged or hypermetabolic pelvic lymph nodes. OSSEOUS STRUCTURES: No new areas of abnormal metabolic uptake. OTHER CT: Stable 6 mm right-sided submandibular sialolith on image 47. Tiny anterior inferior pericar dial effusion. No significant coronary artery calcification. Cholecystectomy clips are redemonstrated . Uterus is surgically absent. Small bilateral pelvic phleboliths are again seen. IMPRESSION: Stable hypermetabolic uptake at level of the anus. No new areas of abnormal hypermetaboli c uptake to suggest malignancy progression. [facility], , 12/10/2024 8:22 AM
== END | disposition home or self-care (01) ==
LOC: RADPETMAIN 09:14
PROVIDERS: ATTEND Internal Medicine Hematology & Oncology
DX: C21.0 Malignant neoplasm of anus, unspecified (principal); Z92.3 Personal history of irradiation
CPT/HCPCS: 78815; A9552